=== PATIENT | male | born 1975 | race Caucasian/White ===

== ENCOUNTER → 2018-12-26 15:02 | Outpatient (CLI) | payer MEDICAID, SELFPAY ==
[2018-12-26 16:15] VITALS: PULSE 78; PULSE 82
== END ==
PROVIDERS: PCP Emergency Medicine; Visit Provider Nurse Practitioner Family
DX: R06.02 Shortness of breath (principal); J45.909 Unspecified asthma, uncomplicated
CPT/HCPCS: 94060; 94640; 94726; 94729

== ENCOUNTER → 2019-07-21 13:20 | Outpatient (CLI) | payer OTHER, SELFPAY ==
[2019-07-21 14:01] LABS: Basophils % 0.3 % (0.1-2.0); Eosinophils # 0.2 K/mm3 (0.0-0.4); Eosinophils % 1.4 % (0.1-12.0); Hematocrit 41.9 % (42.0-52.0); Hemoglobin 13.9 g/dL (14.1-18.0); Lymphocytes # 2.7 K/mm3 (0.7-4.5); Lymphocytes % 21.6 % (10-50); Mean Corpuscular HGB Conc 33.2 g/dL (31.8-35.4); Mean Corpuscular Hemoglobin 29.6 pg (27.0-31.2); Mean Corpuscular Volume 89.3 fl (80-94); Mean Platelet Volume 8.3 fl (7.4-10.4); Monocytes # 0.6 K/mm3 (0.1-1.0); Neutrophils # 8.8 K/mm3 (1.8-7.8); Neutrophils % 71.6 % (37.0-80.0); Platelet Count 379 K/mm3 (142-424); Red Cell Distribution Width 12.8 % (11.5-17.5); White Blood Count 12.3 K/mm3 (4.8-10.8)
[2019-07-21 14:23] LABS: Alanine Aminotransferase 15 U/L (12-78); Albumin Level 3.9 gm/dL (3.4-5.0); Alkaline Phosphatase 101 U/L (46-116); Aspartate Amino Transferase 9 U/L (15-37); Bilirubin,Direct 0.1 mg/dL (0.0-0.2); Bilirubin,Indirect 0.2 mg/dL (0.0-0.9); Bilirubin,Total 0.3 mg/dL (0.2-1.0); Blood Urea Nitrogen 9 mg/dL (7-18); Calcium 8.9 mg/dL (8.5-10.1); Carbon Dioxide 24 mmol/L (21.0-32.0); Chloride 103 mmol/L (98-107); Chol/HDL Ratio 4.6 (1-3.5); Cholesterol 228 mg/dL (140-200); Creatinine,Serum 0.76 mg/dL (0.70-1.30); Estimated Glomerular Filt Rate 111 ml/min (>60); GFR (African American) 135 ML/MIN (>60); Globulin 4.1 gm/dl (1.3-3.2); Glucose 122 mg/dL (74-106); HDL Cholesterol 50 mg/dL (27-67); LDL Cholesterol 159 mg/dL (0-130); Sodium 139 mmol/L (136-145); T4 (Thyroxine) 9.3 ug/dl (4.7-13.3); Triglycerides 97 mg/dL (30-200); VLDL Cholesterol 19 mg/dL (0-40)
[2019-07-22 11:13] LABS: Hep A Ab, IgM Negative (Negative); Hepatitis B Core Antibody IgM Negative (Negative); Hepatitis B Surface Antigen Negative (Negative)
[2019-07-22 15:31] LABS: Hepatitis C Antibody >11.0 s/co ratio (0.0-0.9)
== END ==
PROVIDERS: Nurse Practitioner Family; Visit Provider Emergency Medicine
DX: I10 Essential (primary) hypertension (principal); M79.89 Other specified soft tissue disorders; R20.0 Anesthesia of skin; Z87.898 Personal history of other specified conditions
CPT/HCPCS: 80053; 80061; 80074; 80076; 84436; 84443; 85025; 87522

== ENCOUNTER → 2019-09-22 08:03 | Outpatient (CLI) | payer OTHER, SELFPAY ==
[2019-09-22 08:43] LABS: Basophils # 0.1 K/mm3 (0-0.2); Basophils % 0.7 % (0.1-2.0); Eosinophils # 0.3 K/mm3 (0.0-0.4); Eosinophils % 4.4 % (0.1-12.0); Hematocrit 39.3 % (42.0-52.0); Hemoglobin 12.9 g/dL (14.1-18.0); Lymphocytes # 2.5 K/mm3 (0.7-4.5); Lymphocytes % 37.1 % (10-50); Mean Corpuscular HGB Conc 32.9 g/dL (31.8-35.4); Mean Corpuscular Hemoglobin 29.6 pg (27.0-31.2); Mean Platelet Volume 7.4 fl (7.4-10.4); Monocytes # 0.4 K/mm3 (0.1-1.0); Monocytes % 5.8 % (1.7-9.3); Neutrophils # 3.5 K/mm3 (1.8-7.8); Platelet Count 309 K/mm3 (142-424); Red Blood Count 4.36 M/mm3 (4.60-6.20); Red Cell Distribution Width 12.9 % (11.5-17.5); White Blood Count 6.8 K/mm3 (4.8-10.8)
== END ==
PROVIDERS: Visit Provider Surgery
DX: R10.31 Right lower quadrant pain (principal)
CPT/HCPCS: 36415; 85025

== ENCOUNTER → 2019-09-23 09:27 | Outpatient (CLI) | payer OTHER, SELFPAY ==
[2019-09-23 09:42] LABS: Basophils % 0.6 % (0.1-2.0); Eosinophils # 0.3 K/mm3 (0.0-0.4); Eosinophils % 3.9 % (0.1-12.0); Hemoglobin 13.2 g/dL (14.1-18.0); Lymphocytes # 2.1 K/mm3 (0.7-4.5); Lymphocytes % 29.6 % (10-50); Mean Corpuscular HGB Conc 33.9 g/dL (31.8-35.4); Mean Corpuscular Hemoglobin 30.2 pg (27.0-31.2); Mean Corpuscular Volume 89.1 fl (80-94); Mean Platelet Volume 7.3 fl (7.4-10.4); Monocytes # 0.4 K/mm3 (0.1-1.0); Monocytes % 5.8 % (1.7-9.3); Neutrophils # 4.3 K/mm3 (1.8-7.8); Neutrophils % 60.1 % (37.0-80.0); Platelet Count 283 K/mm3 (142-424); Red Blood Count 4.37 M/mm3 (4.60-6.20); White Blood Count 7.1 K/mm3 (4.8-10.8)
== END ==
PROVIDERS: Visit Provider Surgery
DX: R10.9 Unspecified abdominal pain (principal)
CPT/HCPCS: 36415; 85025

== ENCOUNTER → 2020-03-23 10:02 | Outpatient (CLI) | payer OTHER, SELFPAY ==
[2020-03-23 10:49] LABS: Basophils % 0.6 % (0.1-2.0); Eosinophils # 0.4 K/mm3 (0.0-0.4); Eosinophils % 5.2 % (0.1-12.0); Hematocrit 39.9 % (42.0-52.0); Hemoglobin 13.7 g/dL (14.1-18.0); Lymphocytes # 2.2 K/mm3 (0.7-4.5); Lymphocytes % 31.2 % (10-50); Mean Corpuscular HGB Conc 34.3 g/dL (31.8-35.4); Mean Corpuscular Hemoglobin 30.9 pg (27.0-31.2); Mean Platelet Volume 7.3 fl (7.4-10.4); Monocytes # 0.4 K/mm3 (0.1-1.0); Monocytes % 6.2 % (1.7-9.3); Neutrophils % 56.8 % (37.0-80.0); Platelet Count 294 K/mm3 (142-424); Red Blood Count 4.43 M/mm3 (4.60-6.20); White Blood Count 7.1 K/mm3 (4.8-10.8)
[2020-03-23 11:22] LABS: Chloride 104 mmol/L (98-107); Potassium 4.7 mmoL/L (3.5-5.1); Sodium 141 mmol/L (136-145)
[2020-03-23 11:25] LABS: Alanine Aminotransferase 13 U/L (12-78); Albumin Level 4.3 g/dl (3.5-5.0); Albumin/Globulin Ratio 1.3 (1.1-1.8); Alkaline Phosphatase 82 U/L (38-126); Anion Gap 11.7 mEq/L (5-15); Aspartate Amino Transferase 24 U/L (17-59); Bilirubin,Total 0.5 mg/dl (0.2-1.3); Blood Urea Nitrogen 9 mg/dl (9-20); Carbon Dioxide 30 mmol/L (22.0-30.0); Estimated Glomerular Filt Rate 122 ml/min (>60); GFR (African American) 148 ML/MIN (>60); Globulin 3.2 g/dL (1.3-3.2); Total Protein,Serum 7.5 g/dl (6.3-8.2)
[2020-03-23 11:26] LABS: Calcium 9.7 mg/dl (8.4-10.2); Glucose 101 mg/dl (74-100)
[2020-03-23 11:37] LABS: INR 1.01 (0.9-1.1); Prothrombin Time 10.4 seconds (9.4-11.8)
[2020-03-24 11:21] LABS: HIV Screen 4th Generation wRfx Non Reactive (Non Reactive)
[2020-03-25 04:04] LABS: ALT (SGPT) P5P 14 IU/L (0-55); Alpha 2-Macroglobulins, Qn 156 mg/dL (110-276); Apolipoprotein A-1 113 mg/dL (101-178); Bilirubin, Total 0.3 mg/dL (0.0-1.2); Fibrosis Score 0.11 (0.00-0.21); GGT 17 IU/L (0-65); Haptoglobin 133 mg/dL (23-355); Necroinflammat Activity Grade A0-No activity (.); Necroinflammat Activity Score 0.03 (0.00-0.17)
[2020-03-26 13:06] LABS: Hepatitis B Surface Antigen Negative (Negative)
[2020-04-15 09:34] LABS: Hep A Ab, Total Positive
[2020-04-15 09:35] LABS: Hep B Core Ab, Total Positive
[2020-04-15 09:38] LABS: Hepatitis B Surf Ab Quant >1000.0
== END ==
PROVIDERS: Visit Provider Nurse Practitioner
DX: B18.2 Chronic viral hepatitis C (principal)
CPT/HCPCS: 36415; 80053; 81596; 85025; 85610; 86703; 86704; 86706; 86708; 87340; 87350; 87522; G0432

== ENCOUNTER 2020-06-13 21:57 | Emergency (ER) | payer OTHER, SELFPAY ==
--- NOTE | 2020-06-13 21:41 | ECG_ITS ---
APPROVED REPORT Exam: Resting ECG HR:65 bpm ECG Measurements Heart Rate [address] 190 P 58 QRSd 80 QRS 66 QT 408 T 67 QTc 424 Conclusion Normal sinus rhythm Normal ECG Electronically signed by : Jace Leon, 06/14/2020 14:46:13
[2020-06-13 21:58] VITALS: BP 176/111; PULSE 64; RESP 16; TEMP 37; O2SAT 99; BMI 27.1
--- NOTE | 2020-06-13 22:05 | XR_ITS ---
PROCEDURE: XR CHEST 2V CLINICAL HISTORY: chest pain Shortness of air COMPARISON: CR CXR CHEST(2 VIEWS-NOT PORTABLE) from 08/12/2015 CR CXR CHEST(2 VIEWS-NOT PORTABLE) from 03/13/2016 CR XR CHEST PORTABLE from 09/21/2019 FINDINGS: The cardiomediastinal silhouette and pulmonary vascularity are within normal limits. The lungs are clear without infiltrates, suspicious nodules, or pleural effusions. No acute bony abnormalities. IMPRESSION: No acute findings. Dictated by: Samy Concepcion MD 06/14/2020 05:45 Samy Concepcion MD in [place] 06/14/2020 05:45
--- NOTE | 2020-06-13 22:16 | HMH.EDCP ---
ED Disposition Clinical Impression: Atypical chest pain COPD (chronic obstructive pulmonary disease) Qualifiers: COPD type: COPD with acute exacerbation Qualified Code(s): J44.1 - Chronic obstructive pulmonary disease with (acute) exacerbation Disposition: Home, Self-Care Condition on Discharge: Good Instructions: DI for Atypical Chest Pain Additional Instructions: please call pcp for follow up Prescriptions: levoFLOXacin [Levaquin 500mg tab] 500 mg PO DAILY #7 tab Transmission Status: Pending to [facility] predniSONE [Prednisone 20mg Tab] 20 mg PO BID #10 tab Transmission Status: Pending to [facility] Referrals: Gus Potts MD [Primary Care Provider] - - Critical Care Critical Care Time: No Attestation: On 06/13/20, the high probability of a clinically significant, sudden or life threatening deterioration of the following system(s) required my full and direct attention, intervention and personal management. The time I documented below is in addition to time spent performing reported procedures but includes the following listed in this critical care notation. Medical Decision Making - Medical Records Medical records reviewed: Yes: I reviewed the patient's medical records. - Rios Inquiry Pt receiving controlled substance: No Vital Signs: 06/13/20 21:58 06/13/20 22:30 06/13/20 23:00 Temperature 98.6 F Temperature Source Oral Pulse Rate [Right] 64 61 57 L Respiratory Rate 16 17 17 Blood Pressure [Right Arm] 176/111 H 138/85 142/80 H Blood Pressure Mean [Right Arm] 132 102 100 Blood Pressure Source [Right Arm] Automatic Cuff Automatic Cuff Automatic Cuff Blood Pressure Position [Right Arm] Sitting Supine Supine 02 Sat by Pulse Oximetry 99 98 99 Oxygen Delivery Method Room Air Room Air Room Air - Lab Data Lab results reviewed: Yes: I reviewed the patient's lab results. Lab Results 06/13/20 22:00: WBC 12.0 H, RBC 4.38 L, Hgb 13.5 L, Hct 39.0 L, MCV 89.1, MCH 30.8, MCHC 34.6, RDW 13.4, Plt Count 331, MPV 7.4, Neut % (Auto) 58.6, Lymph % (Auto) 32.5, [place] % (Auto) 5.0, Eos % (Auto) 3.2, Baso % (Auto) 0.7, Neut # (Auto) 7.1, Lymph # (Auto) 3.9, [place] # (Auto) 0.6, Eos # (Auto) 0.4, Baso # (Auto) 0.1 06/13/20 22:00: Sodium 138, Potassium 4.0, Chloride 103, Carbon Dioxide 27, Anion Gap 12.0, BUN 9, Creatinine 0.80, Estimated Creat Clear 150, Estimated GFR 105, Est GFR ( Amer) 126, Glucose 93, Calcium 9.6, Total Bilirubin 0.4, Direct Bilirubin 0.0, Conjugated Bilirubin 0.0, Indirect Bilirubin 0.4, Unconjugated Bilirubin 0.3, AST 23, ALT 12, Alkaline Phosphatase 87, Troponin I < 0.01, Total Protein 8.0, Albumin 4.5 06/13/20 22:00: SARS-CoV-2 IgG Ab (Rapid) Negative, SARS-CoV-2 IgM Ab (Rapid) Negative Result diagrams: 06/13/20 22:00 06/13/20 22:00 Orders (Tests/Meds): ED MEDICATIONS Generic Name Dose Route Start Last Admin Trade Name Freq PRN Reason Stop Dose Admin Sodium Chloride 1,000 mls @ 999 mls/hr 06/13/20 22:15 06/13/20 22:22 Sod Chlor 0.9% 1000ml Bag IV 06/13/20 23:15 999 mls/hr .Q1H1M ARLEN Administration Discontinued Medications Generic Name Dose Route Start Last Admin Trade Name Freq PRN Reason Stop Dose Admin Aspirin 324 mg 06/13/20 22:05 06/13/20 22:05 Aspirin 81mg Chewable Tablet PO 06/13/20 22:06 324 mg ONCE ONE Administration Methylprednisolone Sodium Succinate 125 mg 06/13/20 22:44 06/13/20 22:45 Methylprednisolone Sod Succ 125mg Vial IV 06/13/20 22:45 125 mg ONCE ONE Administration Nitroglycerin 0.4 mg 06/13/20 22:05 06/13/20 22:05 Nitroglycerin 0.4mg Sl Tablet SL 06/13/20 22:06 1 tab ONCE ONE Administration ORDERS Category Date Time Status XR chest 2V Stat Exams 06/13/20 22:05 Taken Troponin I Q3H Lab 06/14/20 01:15 Ordered Troponin I Q3H Lab 06/14/20 04:15 Ordered - Radiology Data #1 Image(s): Chest Image Reviewed: Yes I reviewed the patient's radiology image P
[2020-06-13 22:17] LABS: Basophils # 0.1 K/mm3 (0-0.2); Basophils % 0.7 % (0.1-2.0); Eosinophils # 0.4 K/mm3 (0.0-0.4); Eosinophils % 3.2 % (0.1-12.0); Hemoglobin 13.5 g/dL (14.1-18.0); Lymphocytes # 3.9 K/mm3 (0.7-4.5); Lymphocytes % 32.5 % (10-50); Mean Corpuscular HGB Conc 34.6 g/dL (31.8-35.4); Mean Corpuscular Hemoglobin 30.8 pg (27.0-31.2); Mean Corpuscular Volume 89.1 fl (80-94); Mean Platelet Volume 7.4 fl (7.4-10.4); Monocytes # 0.6 K/mm3 (0.1-1.0); Neutrophils # 7.1 K/mm3 (1.8-7.8); Neutrophils % 58.6 % (37.0-80.0); Platelet Count 331 K/mm3 (142-424); Red Blood Count 4.38 M/mm3 (4.60-6.20); Red Cell Distribution Width 13.4 % (11.5-17.5)
[2020-06-13 22:22] LABS: Chloride 103 mmol/L (98-107); Sodium 138 mmol/L (136-145)
[2020-06-13 22:24] LABS: Blood Urea Nitrogen 9 mg/dl (9-20); Creatinine Clearance Estimated 150 mL/min (50-200); Estimated Glomerular Filt Rate 105 ml/min (>60); GFR (African American) 126 ML/MIN (>60)
[2020-06-13 22:25] LABS: Alanine Aminotransferase 12 U/L (12-78); Albumin Level 4.5 g/dl (3.5-5.0); Alkaline Phosphatase 87 U/L (38-126); Aspartate Amino Transferase 23 U/L (17-59); Bilirubin,Indirect 0.4 mg/dL (0.0-0.9); Bilirubin,Total 0.4 mg/dl (0.2-1.3); Bilirubin,Unconjugated 0.3 mg/dL (0.0-1.1); Calcium 9.6 mg/dl (8.4-10.2); Carbon Dioxide 27 mmol/L (22.0-30.0); Glucose 93 mg/dl (74-100)
[2020-06-13 22:30] VITALS: BP 138/85; PULSE 61; RESP 17; O2SAT 98
[2020-06-13 22:38] LABS: Troponin I < 0.01 ng/ml (0.00-0.034)
[2020-06-13 23:00] VITALS: BP 142/80; PULSE 57; RESP 17; O2SAT 99
[2020-06-13 23:10] LABS: Coronavirus 19 IgG Antibody Negative (Negative); Coronavirus 19 IgM Antibody Negative (Negative)
[2020-06-13 23:47] VITALS: BP 138/90; PULSE 60; RESP 16; TEMP 37; O2SAT 98
== END 2020-06-13 23:49 | disposition home or self-care (01) ==
PROVIDERS: Emergency Provider Emergency Medicine; PCP Emergency Medicine
DX: R07.89 Other chest pain (principal); J44.1 Chronic obstructive pulmonary disease with (acute) exacerbation; Z01.84 Encounter for antibody response examination; I10 Essential (primary) hypertension; F17.210 Nicotine dependence, cigarettes, uncomplicated; Z88.0 Allergy status to penicillin; Z88.1 Allergy status to other antibiotic agents; Z79.899 Other long term (current) drug therapy
CPT/HCPCS: 71046; 80048; 80076; 84484; 85025; 86328; 93005; 96365; 96375; 99283

== ENCOUNTER 2020-06-29 17:10 | Emergency (ER) | payer OTHER, SELFPAY ==
[2020-06-29 17:32] VITALS: BP 159/89; PULSE 73; RESP 14; TEMP 37.2; O2SAT 97; BMI 28.5
--- NOTE | 2020-06-29 17:49 | HMH.EDUTC ---
[facility] [place] Clinical Impression: Exposure to COVID-19 virus, Encounter for screening laboratory testing for COVID-19 virus Disposition: Home, Self-Care Condition on Discharge: Good Instructions: Preventing the Spread of Coronavirus Discharge Instructions Additional Instructions: *Monitor Temp, Over the counter Motrin or Tylenol as directed/as needed Tylenol every 4 hours and Motrin every 6 hours (as long as your family doctor has told you that you can take it) for fever or pain. and straight to ER if unable to lower temp less than 101.0 after medication given *Warm salt water gargles may help to soothe the throat *Throat Lozenges *Warm fluids like tea with honey may help to soothe the throat *Sleep elevated *Humidifier/Vaporizer Follow up IMMEDIATELY for new or worsening symptoms or no Noticeable improvement over the next 48-72 hours. 911 for difficulty breathing or swallowing You was tested for today for COVID19 your test result should be back in the next 24-48 hours, you may call to the [facility] later today or tomorrow to see if your test results are back and the result [phone] [facility] hours are 9am-9pm You was given a handout with instructions for Self Quarantine and Self isolation for while you wait on test results and what to do if they are positive If you are positive the Health Dept will be contacting you also Referrals: Gus Potts MD [Primary Care Provider] - As needed Forms: Work/School Release Time of Disposition: 17:57 Medical Decision Making - Rios Inquiry Pt receiving controlled substance: No Rios was queried for this patient: No Vital Signs: 06/29/20 17:32 Temperature 98.9 F Temperature Source Oral Pulse Rate [Radial] 73 Respiratory Rate 14 Blood Pressure [Right Arm] 159/89 H Blood Pressure Mean [Right Arm] 112 Blood Pressure Source [Right Arm] Automatic Cuff Blood Pressure Position [Right Arm] Sitting 02 Sat by Pulse Oximetry 97 Oxygen Delivery Method Room Air Orders (Tests/Meds): ORDERS Category Date Time Status Covid-19 Nasal PCR Sendout Alen Stat Lab 06/29/20 17:25 Received [facility] [place] - General Stated complaint: COVID TEST, no symptoms Time Seen by Provider: 06/29/20 17:49 Mode of Arrival: Ambulatory Source of Information: Patient Limitations: No Limitations Description of Symptoms (Recalled from Triage Doc. by RN): patient upset that he can't get into his doctor's office for a rapid covid test related to being exposed at work. HEENT Symptoms (Recalled from RN notes): No Resp Symptoms (Recalled from RN notes): No Skin Symptoms (Recalled from RN notes): No MS Symptoms (Recalled from RN notes): No Functional Status (Recalled from RN notes): wnl - History of Present Illness Provider Complaint: Patient states that he was around someone at work that several family members that lives in the house with them tested positive for COVID and now his coworker is having symptoms so they recommended that they come in and get checked Denies any symptoms - Related Data Home Medications Medication Instructions Recorded Confirmed buprenorphine 8 mg-naloxone 2 mg 1 film BUCCAL DAILY 07/21/19 06/13/20 sublingual film Fluticasone/Vilanterol [Breo 1 inh INHALATION DAILY 06/13/20 06/13/20 Ellipta] Umeclidinium [place] [Incruse 1 inh INHALATION DAILY 06/13/20 06/13/20 Ellipta] Previous Rx's Medication Instructions Recorded albuterol sulfate 90 mcg/actuation 2 inh INHALATION Q4-6H PRN #1 each 07/21/19 breath activated powder inhaler levoFLOXacin [Levaquin 500mg 500 mg PO DAILY #7 tab 06/13/20 tab] predniSONE [Prednisone 20mg 20 mg PO BID #10 tab 06/13/20 Tab] Allergies Allergy/AdvReac Type Severity Reaction Status Date / Time amoxicillin [AMOXICILLIN] Allergy Unknown Verified 09/23/19 09:51 azithromycin [AZITHROMYCIN] Allergy Unknown Verified 09/23/19 09:51 diphenhydramine Allergy Unknown Verified 09/23/19 09:51 [From BENADRYL] Penic
[2020-06-29 18:03] VITALS: BP 159/89; PULSE 73; RESP 14; TEMP 37.2; O2SAT 97
[2020-07-01 10:53] LABS: Covid-19 Nasal PCR Sendout Lex Not Detected
== END 2020-06-29 18:03 | disposition home or self-care (01) ==
PROVIDERS: Emergency Provider Nurse Practitioner; PCP Emergency Medicine
DX: Z20.828 Contact with and (suspected) exposure to other viral communicable diseases (principal); I10 Essential (primary) hypertension; Z88.0 Allergy status to penicillin; F17.210 Nicotine dependence, cigarettes, uncomplicated; Z90.49 Acquired absence of other specified parts of digestive tract
CPT/HCPCS: 99201; U0004

== ENCOUNTER 2020-09-13 10:03 | Emergency (ER) | payer OTHER, SELFPAY ==
[2020-09-13 10:04] VITALS: BP 162/86; PULSE 66; RESP 18; TEMP 36.9; O2SAT 98; BMI 28.5
--- NOTE | 2020-09-13 10:06 | HMH.EDABDPAI ---
ED Disposition Clinical Impression: Cystitis Abdominal pain Qualifiers: Abdominal location: right lower quadrant Qualified Code(s): R10.31 - Right lower quadrant pain Disposition: Home, Self-Care Condition on Discharge: Good Instructions: DI for Urinary Tract Infection (UTI) Prescriptions: Doxycycline Hyclate [Doxycycline 100mg Capsule] 100 mg PO BID 7 Days #14 cap [facility]: [facility] Referrals: Gus Potts MD [Primary Care Provider] - - Critical Care Critical Care Time: No Attestation: On , the high probability of a clinically significant, sudden or life threatening deterioration of the following system(s) required my full and direct attention, intervention and personal management. The time I documented below is in addition to time spent performing reported procedures but includes the following listed in this critical care notation. Medical Decision Making - Medical Records Medical records reviewed: Yes: I reviewed the patient's medical records. - Rios Inquiry Pt receiving controlled substance: No Vital Signs: 09/13/20 10:04 09/13/20 11:04 Temperature 98.4 F Temperature Source Oral Pulse Rate [Left Radial] 66 64 Respiratory Rate 18 Blood Pressure [Right Arm] 162/86 H 153/93 H Blood Pressure Mean [Right Arm] 111 113 Blood Pressure Source [Right Arm] Automatic Cuff Automatic Cuff Blood Pressure Position [Right Arm] Sitting Sitting 02 Sat by Pulse Oximetry 98 96 Oxygen Delivery Method Room Air Room Air - Lab Data Lab results reviewed: Yes: I reviewed the patient's lab results. Lab Results 09/13/20 10:20: WBC 7.2, RBC 4.59 L, Hgb 13.9 L, Hct 41.7 L, MCV 90.7, MCH 30.2, MCHC 33.3, RDW 13.3, Plt Count 277, MPV 7.2 L, Neut % (Auto) 58.6, Lymph % (Auto) 31.4, [place] % (Auto) 5.2, Eos % (Auto) 3.9, Baso % (Auto) 0.9, Neut # (Auto) 4.2, Lymph # (Auto) 2.3, [place] # (Auto) 0.4, Eos # (Auto) 0.3, Baso # (Auto) 0.1 09/13/20 10:20: Sodium 139, Potassium 4.2, Chloride 105, Carbon Dioxide 29, Anion Gap 9.2, BUN 11, Creatinine 0.90, Estimated Creat Clear 140, Estimated GFR 91, Est GFR ( Amer) 110, Glucose 113 H, Calcium 9.7 09/13/20 10:23: Urine Color Yellow, Urine Appearance Clear, Urine pH 7.0, Ur Specific [place] 1.020, Urine Protein Negative, Urine Glucose (UA) Negative, Urine Ketones Negative, Urine Blood Negative, Urine Nitrate Negative, Urine Bilirubin Negative, Urine Urobilinogen 0.2, Ur Leukocyte Esterase Negative, Urine WBC 3-5, Ur Squamous Epith Cells Occasional Result diagrams: 09/13/20 10:20 09/13/20 10:20 Orders (Tests/Meds): ORDERS Category Date Time Status CT abdomen pelvis wo con Stat Cat Scan 09/13/20 10:11 Taken - CT Data CT Scan: Abdomen, Pelvis Time Received: 11:[address] Reviewed: Yes: I have reviewed the patient's CT results Findings Narrative: CT shows bladder thickening which may represent acute or chronic cystitis, also possibility would be chronic bladder outlet obstruction and chronic bladder stasis Medical Decision Narrative: Patient with CT scan that shows no signs of kidney stones, but does suggest acute versus chronic cystitis, or possibly chronic bladder outlet obstruction. Patient is covered for STDs here, though he seems insistent that this is not a possibility. He does state that he urinates frequently and this has been ongoing for quite some time. No signs of appendicitis, sepsis. He is given Rocephin IM and covered with doxycycline outpatient as he is allergic to azithromycin. First dose of doxycycline given here. We discussed the possibility of primary UTI, STD, prostate problems and I advised to follow-up with urology for further evaluation and management. Abdominal Pain HPI - General Stated Complaint: abdominal pain Time Seen by Provider: 09/13/20 10:06 Mode of Arrival: Ambulatory Source of Information: Patient Limitations: No Limitations - History of Present Illness HPI narrative: This is a 44-y
--- NOTE | 2020-09-13 10:11 | CT_ITS ---
PROCEDURE: CT ABDOMEN PELVIS WO CON CLINICAL INDICATION: right abd pain, painful urination COMPARISON: CT CT ABDOMEN PELVIS W CON from 09/21/2019 TECHNIQUE: Axial images obtained with sagittal and coronal reformats. All CT scans at the facility use one or more dose reduction, viz: automated exposure control, ma/kV adjustment per patient size (including targeted exams where dose is matched to indication, i.e. head), or iterative reconstruction technique. FINDINGS: LOWER THORAX: On the most superior image of the chest there is a 5 mm nodular opacity in lingula. This may only be due to a branching vessel on end or pulmonary nodule. ABDOMEN & PELVIS: There are multiple small hypodensities of the liver and may be due to cysts having a similar appearance on 09/21/2019. The spleen is mildly enlarged 14 cm. The adrenal glands and pancreas and kidneys have an unremarkable appearance. No renal or ureteral calculi. No hydronephrosis. There are few scattered small retroperitoneal and periportal and peripancreatic lymph nodes. No intestinal obstruction or free air. No evidence of appendicitis. There is a small umbilical hernia which contains fat. No evidence of diverticulitis. There is mild thickening of the urinary bladder wall. A small calcific density is present within the urachal remnant nonspecific. There are few small sclerotic foci of the femora consistent with small bone islands. IMPRESSION: 1. There is mild urinary bladder wall thickening which may be seen with incomplete distension, chronic outflow obstruction, or cystitis. 2. Scattered mildly prominent lymph nodes in the retroperitoneum and periportal and peripancreatic region overall not significantly changed. Dictated by: aSmy Concepcion MD 09/13/2020 11:45 Samy Concepcion MD in [place] 09/13/2020 11:45
[2020-09-13 10:29] LABS: Microscopic, Urine URINE MICROSCOPIC (MICROSCOPIC)
[2020-09-13 10:34] LABS: Appearance,Urine CLEAR (Clear); Bilirubin,Urine Negative (Negative); Blood, Urine Negative (Negative); Color,Urine YELLOW (Yellow); Glucose,Urine (UA) Negative (Negative); Ketones,Urine Negative (Negative); Leukocyte Esterase,Urine Negative (Negative); Nitrate,Urine Negative (Negative); Protein,Urine Negative (Negative); Urobilinogen,Urine 0.2 EU/dl (0.2)
[2020-09-13 10:41] LABS: Chloride 105 mmol/L (98-107); Potassium 4.2 mmoL/L (3.5-5.1); Sodium 139 mmol/L (136-145)
[2020-09-13 10:43] LABS: Blood Urea Nitrogen 11 mg/dl (9-20); Creatinine Clearance Estimated 140 mL/min (50-200); Estimated Glomerular Filt Rate 91 ml/min (>60); GFR (African American) 110 ML/MIN (>60)
[2020-09-13 10:44] LABS: Anion Gap 9.2 mEq/L (5-15); Calcium 9.7 mg/dl (8.4-10.2); Carbon Dioxide 29 mmol/L (22.0-30.0); Glucose 113 mg/dl (74-100)
[2020-09-13 10:50] LABS: Squamous Epithelial Cell,Urine Occasional #/hpf (0-5)
[2020-09-13 10:55] LABS: Basophils # 0.1 K/mm3 (0-0.2); Basophils % 0.9 % (0.1-2.0); Eosinophils # 0.3 K/mm3 (0.0-0.4); Eosinophils % 3.9 % (0.1-12.0); Hematocrit 41.7 % (42.0-52.0); Hemoglobin 13.9 g/dL (14.1-18.0); Lymphocytes # 2.3 K/mm3 (0.7-4.5); Lymphocytes % 31.4 % (10-50); Mean Corpuscular HGB Conc 33.3 g/dL (31.8-35.4); Mean Corpuscular Hemoglobin 30.2 pg (27.0-31.2); Mean Corpuscular Volume 90.7 fl (80-94); Mean Platelet Volume 7.2 fl (7.4-10.4); Monocytes # 0.4 K/mm3 (0.1-1.0); Monocytes % 5.2 % (1.7-9.3); Neutrophils # 4.2 K/mm3 (1.8-7.8); Neutrophils % 58.6 % (37.0-80.0); Platelet Count 277 K/mm3 (142-424); Red Blood Count 4.59 M/mm3 (4.60-6.20); Red Cell Distribution Width 13.3 % (11.5-17.5); White Blood Count 7.2 K/mm3 (4.8-10.8)
[2020-09-13 11:04] VITALS: BP 153/93; PULSE 64; O2SAT 96
[2020-09-13 12:30] VITALS: BP 153/93; PULSE 64; RESP 18; TEMP 36.9; O2SAT 96
[2020-09-15 10:17] LABS: Neisseria gonorrhoeae, NAA Negative (Negative)
== END 2020-09-13 12:35 | disposition home or self-care (01) ==
PROVIDERS: Emergency Provider Emergency Medicine; PCP Emergency Medicine
DX: N32.89 Other specified disorders of bladder (principal); R10.31 Right lower quadrant pain; F11.90 Opioid use, unspecified, uncomplicated; I82.409 Acute embolism and thrombosis of unspecified deep veins of unspecified lower extremity; I10 Essential (primary) hypertension; Z72.0 Tobacco use; Z82.3 Family history of stroke; Z80.9 Family history of malignant neoplasm, unspecified; Z83.3 Family history of diabetes mellitus; Z84.89 Family history of other specified conditions
CPT/HCPCS: 74176; 80048; 81001; 85025; 87491; 87591; 99283

== ENCOUNTER 2020-10-31 12:02 | Emergency (ER) | payer OTHER, SELFPAY ==
[2020-10-31 12:40] VITALS: BP 147/84; PULSE 53; RESP 14; TEMP 36.8; O2SAT 96; BMI 29.8
--- NOTE | 2020-10-31 13:10 | HMH.EDUTC ---
[facility] [place] Disposition Clinical Impression: Bronchitis, Viral syndrome, Exposure to COVID-19 virus Disposition: Home, Self-Care Condition on Discharge: Good Instructions: DI for Acute Bronchitis, DI for COVID-19 (Suspected or Confirmed ), Preventing the Spread of Coronavirus Discharge Instructions Additional Instructions: Drink plenty of fluids. Take tylenol for pain or fever. Return if you begin to have difficulty breathing. Follow up with your regular doctor. GO TO THE ER FOR ANY WORSENING SYMPTOMS Prescriptions: Ondansetron [Zofran 4mg ODT] 4 mg PO Q8HP PRN #12 tab.rapdis PRN Reason: Nausea Transmission Status: Received by [facility] Doxycycline Hyclate [Doxycycline 100mg Capsule] 100 mg PO Q12 10 Days #20 cap Transmission Status: Received by [facility] predniSONE [Prednisone 20mg Tab] 20 mg PO BID 4 Days #8 tab Transmission Status: Received by [facility] Referrals: Gus Potts MD [Primary Care Provider] - Forms: Work/School Release Time of Disposition: 13:25 Medical Decision Making - Medical Records Medical records reviewed: No: I reviewed the patient's medical records. - Rios Inquiry Pt receiving controlled substance: No Vital Signs: 10/31/20 12:40 10/31/20 13:29 Temperature 98.2 F 98.2 F Temperature Source Oral Pulse Rate 53 L Pulse Rate [Right Brachial] 53 L Respiratory Rate 14 14 Blood Pressure 147/84 H Blood Pressure [Right Arm] 147/84 H Blood Pressure Mean [Right Arm] 105 Blood Pressure Source [Right Arm] Automatic Cuff Blood Pressure Position [Right Arm] Sitting 02 Sat by Pulse Oximetry 96 Oxygen Delivery Method Room Air - Lab Data Lab Results 10/31/20 13:36: Influenza Type A Ag Negative, Influenza Type B Ag Negative 10/31/20 13:36: Strep Scn Rapid Clinic Negative Orders (Tests/Meds): ORDERS Category Date Time Status Strep Screen Confirmation Stat Micro 10/31/20 13:36 Received [facility] [place] HPI - General Stated complaint: vomiting, soa, headache Time Seen by Provider: 10/31/20 13:10 Mode of Arrival: Ambulatory Source of Information: Patient Limitations: No Limitations Description of Symptoms (Recalled from Triage Doc. by RN): PATIENT C/O SOA, VOMITING, HEADACHE THAT STARTED THIS MORNING HEENT Symptoms (Recalled from RN notes): No Resp Symptoms (Recalled from RN notes): Yes Skin Symptoms (Recalled from RN notes): No MS Symptoms (Recalled from RN notes): No Functional Status (Recalled from RN notes): WNL - History of Present Illness Provider Complaint: He states that he has had nausea, cough, chest congestion, chills and body aches since early this morning. He denies any chest pain or shortness of breath. - Related Data Home Medications Medication Instructions Recorded Confirmed buprenorphine 8 mg-naloxone 2 mg 1 film BUCCAL DAILY 07/21/19 10/31/20 sublingual film Previous Rx's Medication Instructions Recorded albuterol sulfate 90 mcg/actuation 2 inh INHALATION Q4-6H PRN #1 each 07/21/19 breath activated powder inhaler Doxycycline Hyclate [Doxycycline 100 mg PO Q12 10 Days #20 cap 10/31/20 100mg Capsule] Ondansetron [Zofran 4mg ODT] 4 mg PO Q8HP PRN #12 tab.rapdis 10/31/20 predniSONE [Prednisone 20mg 20 mg PO BID 4 Days #8 tab 10/31/20 Tab] Allergies Allergy/AdvReac Type Severity Reaction Status Date / Time amoxicillin [AMOXICILLIN] Allergy Unknown Verified 09/23/19 09:51 azithromycin [AZITHROMYCIN] Allergy Unknown Verified 09/23/19 09:51 diphenhydramine Allergy Unknown Verified 09/23/19 09:51 [From BENADRYL] Penicillins [PENICILLINS] Allergy Unknown Verified 09/23/19 09:51 - Worker's Comp Is this a Worker's Comp case?: No [facility] History - Hepatitis A Screen Drug use history?: No High risk sexual behaviors?: No History of sexually transmitted infection?: No Currently employed?: No Childcare worker?: No Do you have indoor plumbing?: Yes Do yo
[2020-10-31 13:29] VITALS: BP 147/84; PULSE 53; RESP 14; TEMP 36.8; O2SAT 96
[2020-10-31 13:38] LABS: UTC Strep Screen (Rapid) Negative (Negative)
[2020-10-31 13:39] LABS: UTC Influenza A Antigen Negative (Negative); UTC Influenza B Antigen Negative (Negative)
== END 2020-10-31 13:33 | disposition home or self-care (01) ==
PROVIDERS: Emergency Provider Nurse Practitioner Family; PCP Emergency Medicine
DX: Z20.822 Contact with and (suspected) exposure to COVID-19 (principal); J20.9 Acute bronchitis, unspecified; B34.9 Viral infection, unspecified; I10 Essential (primary) hypertension; F17.210 Nicotine dependence, cigarettes, uncomplicated; Z86.718 Personal history of other venous thrombosis and embolism; Z90.49 Acquired absence of other specified parts of digestive tract; Z88.0 Allergy status to penicillin; Z88.1 Allergy status to other antibiotic agents
CPT/HCPCS: 87804; 87880; 99202; G0463; U0003

== ENCOUNTER 2020-12-15 09:12 | Emergency (ER) | payer OTHER, SELFPAY ==
[2020-12-15 09:26] VITALS: BP 136/89; PULSE 72; RESP 19; TEMP 36.9; O2SAT 99; BMI 31.5
[2020-12-15 09:28] VITALS: BP 136/89; PULSE 72; RESP 21; TEMP 36.9; O2SAT 99; BMI 31.5
--- NOTE | 2020-12-15 09:38 | HMH.EDUTC ---
[facility] [place] Clinical Impression: Exposure to COVID-19 virus Disposition: Home, Self-Care Condition on Discharge: Good Instructions: DI for COVID-19 (Suspected or Confirmed ), Coronavirus Disease 2019, Preventing the Spread of Coronavirus Discharge Instructions Additional Instructions: *Monitor Temp, Over the counter Motrin or Tylenol as directed/as needed Tylenol every 4 hours and Motrin every 6 hours (as long as your family doctor has told you that you can take it) for fever or pain. and straight to ER if unable to lower temp less than 101.0 after medication given Make sure to drink plenty of fluids and eat healthy Follow up IMMEDIATELY for new or worsening symptoms or no Noticeable improvement over the next 48-72 hours. 911 for difficulty breathing or swallowing You were tested for today for COVID19 your test result should be back in the next 24-48 hours, you may call to the [facility] to see if your test results are back in the next 48 hours [phone] [facility] hours are 9am-9pm You was given a handout with instructions for Self Quarantine and Self isolation for while you wait on test results and what to do if they are positive If you are positive the Health Dept will be contacting you also Referrals: Gus Potts MD [Primary Care Provider] - As needed Forms: Work/School Release Time of Disposition: 09:45 Medical Decision Making - Rios Inquiry Pt receiving controlled substance: No Rios was queried for this patient: No Vital Signs: 12/15/20 09:26 12/15/20 09:28 12/15/20 09:47 Temperature 98.4 F 98.4 F 98.6 F Temperature Source Oral Oral Pulse Rate 72 Pulse Rate [Right Brachial] 72 72 Respiratory Rate 19 21 21 Blood Pressure 136/89 Blood Pressure [Right Arm] 136/89 136/89 Blood Pressure Mean [Right Arm] 104 104 Blood Pressure Source [Right Arm] Automatic Cuff Blood Pressure Position [Right Arm] Sitting 02 Sat by Pulse Oximetry 99 99 Orders (Tests/Meds): ORDERS Category Date Time Status Covid-19 Nasal PCR ([facility]) Routine Lab 12/15/20 09:20 Received [facility] [place]PI - General Stated complaint: covid exposure, headache,weakness Time Seen by Provider: 12/15/20 09:38 Mode of Arrival: Family Vehicle Description of Symptoms (Recalled from Triage Doc. by RN): Pt states he was exposed to covid last weekend and started having symptoms 3 days ago such as sob, cough, and body aches HEENT Symptoms (Recalled from RN notes): Yes Resp Symptoms (Recalled from RN notes): Yes Skin Symptoms (Recalled from RN notes): No MS Symptoms (Recalled from RN notes): No Functional Status (Recalled from RN notes): wnl - History of Present Illness Provider Complaint: Patient state that he has a history of COPD State that he was exposed to someone last week that tested positive for COVID States that he has been feeling ok but about three days ago he felt a little winded after coughing but that got better and since he has been having body aches and chills States that today he is feeling achy all over an wanted to get tested Denies SOA today - Related Data Home Medications Medication Instructions Recorded Confirmed buprenorphine 8 mg-naloxone 2 mg 1 film BUCCAL DAILY 07/21/19 10/31/20 sublingual film Previous Rx's Medication Instructions Recorded albuterol sulfate 90 mcg/actuation 2 inh INHALATION Q4-6H PRN #1 each 07/21/19 breath activated powder inhaler Doxycycline Hyclate [Doxycycline 100 mg PO Q12 10 Days #20 cap 10/31/20 100mg Capsule] Ondansetron [Zofran 4mg ODT] 4 mg PO Q8HP PRN #12 tab.rapdis 10/31/20 predniSONE [Prednisone 20mg 20 mg PO BID 4 Days #8 tab 10/31/20 Tab] Allergies Allergy/AdvReac Type Severity Reaction Status Date / Time amoxicillin [AMOXICILLIN] Allergy Unknown Verified 09/23/19 09:51 azithromycin [AZITHROMYCIN] Allergy Unknown Verified 09/23/19 09:51 diphenhydramine Allergy Unknown Verified 09/23/19 09:51 [From BENADRYL] Penicillins [PENICILLIN
[2020-12-15 09:47] VITALS: BP 136/89; PULSE 72; RESP 21; TEMP 37; O2SAT 99
== END 2020-12-15 09:47 | disposition home or self-care (01) ==
PROVIDERS: Emergency Provider Nurse Practitioner; PCP Emergency Medicine
DX: Z20.822 Contact with and (suspected) exposure to COVID-19 (principal); J44.9 Chronic obstructive pulmonary disease, unspecified; I10 Essential (primary) hypertension; F17.210 Nicotine dependence, cigarettes, uncomplicated
CPT/HCPCS: 99202; G0463; U0003

== ENCOUNTER 2021-06-22 13:19 | Emergency (ER) | payer OTHER, SELFPAY ==
[2021-06-22 13:21] VITALS: BP 158/100; PULSE 74; RESP 16; TEMP 36.8; O2SAT 98; BMI 28.5
[2021-06-22 13:33] VITALS: BP 157/100; PULSE 69; RESP 20; O2SAT 96
[2021-06-22 13:44] VITALS: BMI 28.5
--- NOTE | 2021-06-22 13:45 | XR_ITS ---
PROCEDURE: XR CHEST PORTABLE CLINICAL HISTORY: cough COMPARISON: CR CXR CHEST(2 VIEWS-NOT PORTABLE) from 03/13/2016 CR XR CHEST PORTABLE from 09/21/2019 CR XR CHEST 2V from 06/13/2020 FINDINGS: The cardiomediastinal silhouette and pulmonary vascularity are within normal limits. The lungs are clear without infiltrates, suspicious nodules, or pleural effusions. Minimal upper thoracic curvature convex right. IMPRESSION: No acute findings. Dictated by: Samy Concepcion MD 06/22/2021 14:21 Samy Concepcion MD in [place] 06/22/2021 14:21
[2021-06-22 13:56] LABS: Basophils # 0.1 K/mm3 (0-0.2); Basophils % 1.2 % (0.1-2.0); Eosinophils # 0.2 K/mm3 (0.0-0.4); Hematocrit 39.2 % (42.0-52.0); Hemoglobin 13.7 g/dL (14.1-18.0); Lymphocytes # 2.3 K/mm3 (0.7-4.5); Lymphocytes % 29.2 % (10-50); Mean Corpuscular HGB Conc 34.8 g/dL (31.8-35.4); Mean Platelet Volume 8.2 fl (7.4-10.4); Monocytes # 0.6 K/mm3 (0.1-1.0); Monocytes % 6.9 % (1.7-9.3); Neutrophils # 4.8 K/mm3 (1.8-7.8); Neutrophils % 59.7 % (37.0-80.0); Platelet Count 339 K/mm3 (142-424); Red Blood Count 4.41 M/mm3 (4.60-6.20); Red Cell Distribution Width 13.1 % (11.5-17.5)
[2021-06-22 14:00] VITALS: BP 134/91; PULSE 71; RESP 20; O2SAT 95
[2021-06-22 14:19] LABS: Alanine Aminotransferase 14 U/L (12-78); Albumin Level 4.4 g/dl (3.5-5.0); Albumin/Globulin Ratio 1.4 (1.1-1.8); Alkaline Phosphatase 94 U/L (38-126); Aspartate Amino Transferase 25 U/L (17-59); Bilirubin,Total 0.7 mg/dl (0.2-1.3); Blood Urea Nitrogen 11 mg/dl (9-20); Calcium 9.2 mg/dl (8.4-10.2); Carbon Dioxide 29 mmol/L (22.0-30.0); Chloride 104 mmol/L (98-107); Creatinine Clearance Estimated 178 mL/min (50-200); Estimated Glomerular Filt Rate 121 ml/min (>60); GFR (African American) 147 ML/MIN (>60); Globulin 3.2 g/dL (1.3-3.2); Glucose 111 mg/dl (74-100); Sodium 137 mmol/L (136-145); Total Protein,Serum 7.6 g/dl (6.3-8.2)
[2021-06-22 14:30] VITALS: BP 146/102; PULSE 58; O2SAT 94
--- NOTE | 2021-06-22 14:34 | HMH.EDGENADL ---
ED Disposition Clinical Impression: Viral upper respiratory infection, Osteoma Headache Qualifiers: Headache type: unspecified Headache chronicity pattern: acute headache Intractability: not intractable Qualified Code(s): R51.9 - Headache, unspecified Disposition: Home, Self-Care Condition on Discharge: Good Instructions: DI for Viral Upper Respiratory Infection -- Adult, DI for Headache Additional Instructions: Continue current medications prescribed for your respiratory infection. Tylenol or ibuprofen for headache. 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 Additional instructions for HEADACHE: See your physician as soon as possible for further evaluation. Return immediately if worsening headache, vomiting, problems with vision or speech, fever, numbness or weakness of the extremities, neck pain or stiffness. Referrals: Gus Potts MD [Primary Care Provider] - Forms: Work/School Release - Critical Care Critical Care Time: No Attestation: On 06/22/21, the high probability of a clinically significant, sudden or life threatening deterioration of the following system(s) required my full and direct attention, intervention and personal management. The time I documented below is in addition to time spent performing reported procedures but includes the following listed in this critical care notation. Medical Decision Making - Rios Inquiry Pt receiving controlled substance: No Vital Signs: 06/22/21 13:21 06/22/21 13:33 06/22/21 14:00 Temperature 98.2 F Temperature Source Oral Pulse Rate 69 71 Pulse Rate [Right] 74 Respiratory Rate 16 20 20 Blood Pressure 157/100 H 134/91 H Blood Pressure [Right Arm] 158/100 H Blood Pressure Mean 114 109 Blood Pressure Mean [Right Arm] 119 Blood Pressure Source [Right Arm] Automatic Cuff Blood Pressure Position [Right Arm] Sitting 02 Sat by Pulse Oximetry 98 96 95 Oxygen Delivery Method Room Air 06/22/21 14:30 06/22/21 15:01 Temperature Temperature Source Pulse Rate 58 L 56 L Pulse Rate [Right] Respiratory Rate Blood Pressure 146/102 H 120/57 L Blood Pressure [Right Arm] Blood Pressure Mean 116 78 Blood Pressure Mean [Right Arm] Blood Pressure Source [Right Arm] Blood Pressure Position [Right Arm] 02 Sat by Pulse Oximetry 94 L 93 L Oxygen Delivery Method - Lab Data Lab Results 06/22/21 13:34: WBC 8.0, RBC 4.41 L, Hgb 13.7 L, Hct 39.2 L, MCV 89.0, MCH 31.0, MCHC 34.8, RDW 13.1, Plt Count 339, MPV 8.2, Neut % (Auto) 59.7, Lymph % (Auto) 29.2, [place] % (Auto) 6.9, Eos % (Auto) 3.0, Baso % (Auto) 1.2, Neut # (Auto) 4.8, Lymph # (Auto) 2.3, [place] # (Auto) 0.6, Eos # (Auto) 0.2, Baso # (Auto) 0.1 06/22/21 13:34: Sodium 137, Potassium 4.2, Chloride 104, Carbon Dioxide 29, Anion Gap 8.2, BUN 11, Creatinine 0.70, Estimated Creat Clear 178, Estimated GFR 121, Est GFR ( Amer) 147, Glucose 111 H, Calcium 9.2, Total Bilirubin 0.7, AST 25, ALT 14, Alkaline Phosphatase 94, Total Protein 7.6, Albumin 4.4, Globulin 3.2, Albumin/Globulin Ratio 1.4 06/22/21 14:30: SARS-CoV-2 (PCR) Not detected, Influenza A Untype (PCR) Not detected, Influenza Type B (PCR) Not detected Result diagrams: 06/22/21 13:34 06/22/21 13:34 Orders (Tests/Meds): ED MEDICATIONS Discontinued Medications Generic Name Dose Route Start Last Admin Trade Name Freq PRN Reason Stop Dose Admin Ketorolac Tromethamine 30 mg 06/22/21 16:45 06/22/21 16:50 Ketorolac 30mg/Ml Vial IV 06/22/21 16:46 30 mg ONCE ONE Administration - Radiology Data #1 Image(s): Chest Image Reviewed: Yes I have reviewed radiologist's interpretation PROCEDURE: XR CHEST PORTABLE CLINICAL HISTORY: cough COMPARISON: CR CXR CHEST(2 VIEWS-NOT PORTABLE) from 03/13/2016 CR XR CHEST PORTABLE from 09/21/2019 CR XR CHEST 2V from 06/13/2020
[2021-06-22 14:38] LABS: Coronavirus 19, PCR Not Detected (NotDetected); Influenza A, PCR Not Detected (NotDetected); Influenza B, PCR Not Detected (NotDetected)
[2021-06-22 14:39] LABS: Anion Gap 8.2 mEq/L (5-15); Potassium 4.2 mmoL/L (3.5-5.1)
--- NOTE | 2021-06-22 14:53 | CT_ITS ---
PROCEDURE: CT HEAD/BRAIN WO CON CLINICAL INDICATION: headache COMPARISON: CT HDWO CT HEAD W/O CONTRAST from 02/26/2016 TECHNIQUE: Axial images obtained. All CT scans at the facility use one or more dose reduction, viz: automated exposure control, ma/kV adjustment per patient size (including targeted exams where dose is matched to indication, i.e. head), or iterative reconstruction technique. FINDINGS: No midline shift, mass effect, intracranial hemorrhage, hydrocephalus, or extra-axial fluid collection is evident. The calvarium has an unremarkable appearance. No mastoid effusion. There is a large osteoma in the frontal sinus measuring 4.6 cm transverse and up to 2 cm AP and 3 cm cephalad caudad.. The osteoma has enlarged since 02/26/2016 previously measuring 3.8 x 2 cm,. This lesion extends into both left and right aspect of the frontal sinuses more so on the left. No obvious underlying bony destruction. There is partial opacification of the left aspect of the frontal sinus which was not present on the previous exam. IMPRESSION: No acute intracranial findings. Enlarging large frontal sinus osteoma. Dictated by: Samy Concepcion MD 06/22/2021 16:09 Samy Concepcion MD in [place] 06/22/2021 16:09
[2021-06-22 15:01] VITALS: BP 120/57; PULSE 56; O2SAT 93
[2021-06-22 16:57] VITALS: BP 120/85; PULSE 72; RESP 16; TEMP 36.8; O2SAT 98
== END 2021-06-22 16:57 | disposition home or self-care (01) ==
PROVIDERS: Emergency Provider Emergency Medicine; PCP Emergency Medicine
DX: J06.9 Acute upper respiratory infection, unspecified (principal); Z20.822 Contact with and (suspected) exposure to COVID-19; D16.9 Benign neoplasm of bone and articular cartilage, unspecified; I10 Essential (primary) hypertension; F17.210 Nicotine dependence, cigarettes, uncomplicated; Z88.0 Allergy status to penicillin
CPT/HCPCS: 70450; 71045; 80053; 85025; 96374; 99283; C9803; U0003; U0005

== ENCOUNTER → 2021-06-22 19:59 | Outpatient (CLI) | payer OTHER, SELFPAY | PROVIDERS: Visit Provider Nurse Practitioner Family | DX: Z20.822 Contact with and (suspected) exposure to COVID-19 (principal) | CPT/HCPCS: C9803; U0003; U0005 ==

== ENCOUNTER → 2021-08-15 18:10 | Outpatient (CLI) | payer OTHER, SELFPAY | PROVIDERS: PCP Emergency Medicine; Visit Provider Nurse Practitioner | DX: Z20.822 Contact with and (suspected) exposure to COVID-19 (principal) | CPT/HCPCS: C9803; U0003; U0005 ==

== ENCOUNTER → 2021-09-11 08:33 | Outpatient (CLI) | payer OTHER, SELFPAY ==
[2021-09-12 06:53] LABS: Covid-19 Nasal PCR Sendout Lex NOT DETECTED
== END ==
PROVIDERS: Visit Provider Nurse Practitioner
DX: Z20.822 Contact with and (suspected) exposure to COVID-19 (principal)
CPT/HCPCS: C9803; U0004; U0005

== ENCOUNTER → 2021-09-12 16:00 | Outpatient (CLI) | payer OTHER, SELFPAY | PROVIDERS: Visit Provider Physician Assistant | DX: Z11.52 Encounter for screening for COVID-19 (principal); R43.2 Parageusia | CPT/HCPCS: C9803; U0003; U0005 ==

== ENCOUNTER 2021-11-24 16:54 | Emergency (ER) | payer OTHER, SELFPAY ==
--- NOTE | 2021-11-24 16:54 | ECG_ITS ---
APPROVED REPORT Exam: Resting ECG HR:68 bpm ECG Measurements Heart Rate 68 AXES RI 186 P 51 QRSd 78 QRS 60 QT 393 T 40 QTc 409 Conclusion SINUS RHYTHM NORMAL ECG UNCONFIRMED REPORT Electronically signed by : Jace Leon MD 11/25/2021 08:09:57
[2021-11-24 16:58] VITALS: BP 156/98; PULSE 72; RESP 16; TEMP 36.8; O2SAT 98; BMI 28.5
--- NOTE | 2021-11-24 17:10 | XR_ITS ---
PROCEDURE INFORMATION: Exam: XR Chest Exam date and time: 11/24/2021 5:15 PM Age: 46 years old Clinical indication: Chest wall pain; Additional info: Chest pain TECHNIQUE: Imaging protocol: XR of the chest. Views: 1 view. COMPARISON: CR XR CHEST PORTABLE 06/22/2021 1:54 PM FINDINGS: Lungs: Unremarkable. No consolidation. Pleural spaces: Unremarkable. No pleural effusion. No pneumothorax. Heart/Mediastinum: Unremarkable. No cardiomegaly. Bones/joints: Unremarkable. IMPRESSION: No acute findings.
[2021-11-24 17:17] LABS: Basophils # 0.1 K/mm3 (0-0.2); Basophils % 1.6 % (0.1-2.0); Eosinophils # 0.2 K/mm3 (0.0-0.4); Eosinophils % 3.2 % (0.1-12.0); Hematocrit 36.7 % (42.0-52.0); Hemoglobin 12.5 g/dL (14.1-18.0); Lymphocytes # 2.1 K/mm3 (0.7-4.5); Lymphocytes % 39.8 % (10-50); Mean Corpuscular Hemoglobin 30.5 pg (27.0-31.2); Mean Corpuscular Volume 89.7 fl (80-94); Mean Platelet Volume 7.3 fl (7.4-10.4); Monocytes # 0.3 K/mm3 (0.1-1.0); Monocytes % 5.9 % (1.7-9.3); Neutrophils # 2.7 K/mm3 (1.8-7.8); Neutrophils % 49.6 % (37.0-80.0); Platelet Count 292 K/mm3 (142-424); Red Cell Distribution Width 13.3 % (11.5-17.5); White Blood Count 5.3 K/mm3 (4.8-10.8)
[2021-11-24 17:19] LABS: Chloride 107 mmol/L (98-107); Potassium 3.7 mmoL/L (3.5-5.1); Sodium 139 mmol/L (136-145)
[2021-11-24 17:22] LABS: Anion Gap 9.7 mEq/L (5-15); Blood Urea Nitrogen 11 mg/dl (9-20); Carbon Dioxide 26 mmol/L (22.0-30.0); Creatinine Clearance Estimated 154 mL/min (50-200); Estimated Glomerular Filt Rate 104 ml/min (>60); GFR (African American) 125 ML/MIN (>60)
[2021-11-24 17:23] LABS: Calcium 8.2 mg/dl (8.4-10.2); Glucose 118 mg/dl (74-100)
[2021-11-24 17:30] VITALS: BP 135/82; PULSE 66; RESP 18; O2SAT 97
[2021-11-24 17:32] LABS: NT Pro Brain Natriuretic Pep. 72.8 pg/mL (0-125)
[2021-11-24 17:37] LABS: Troponin I < 0.01 ng/ml (0.00-0.034)
--- NOTE | 2021-11-24 18:11 | HMH.EDGENADL ---
ED Disposition Clinical Impression: Viral upper respiratory infection, Dyspepsia Disposition: Home, Self-Care Condition on Discharge: Good Instructions: DI for Viral Upper Respiratory Infection -- Adult Prescriptions: Ondansetron [Zofran 4mg ODT] 4 mg PO BIDP PRN #10 tab PRN Reason: Nausea Transmission Status: Pending to [facility] Referrals: Provider,Vania, [Primary Care Provider] - Gus Potts MD [Staff Physician] - - Critical Care Critical Care Time: No Attestation: On 11/24/21, the high probability of a clinically significant, sudden or life threatening deterioration of the following system(s) required my full and direct attention, intervention and personal management. The time I documented below is in addition to time spent performing reported procedures but includes the following listed in this critical care notation. Medical Decision Making - Medical Records Medical records reviewed: Yes: I reviewed the patient's medical records. - Rios Inquiry Pt receiving controlled substance: No Vital Signs: 11/24/21 16:58 11/24/21 17:30 Temperature 98.2 F Temperature Source Oral Pulse Rate 66 Pulse Rate [Radial] 72 Respiratory Rate 16 18 Blood Pressure 135/82 Blood Pressure [Right Arm] 156/98 H Blood Pressure Mean 99 Blood Pressure Mean [Right Arm] 117 Blood Pressure Position [Right Arm] Sitting 02 Sat by Pulse Oximetry 98 97 Oxygen Delivery Method Room Air - Lab Data Lab Results 11/24/21 17:05: WBC 5.3, RBC 4.10 L, Hgb 12.5 L, Hct 36.7 L, MCV 89.7, MCH 30.5, MCHC 34.0, RDW 13.3, Plt Count 292, MPV 7.3 L, Neut % (Auto) 49.6, Lymph % (Auto) 39.8, [place] % (Auto) 5.9, Eos % (Auto) 3.2, Baso % (Auto) 1.6, Neut # (Auto) 2.7, Lymph # (Auto) 2.1, [place] # (Auto) 0.3, Eos # (Auto) 0.2, Baso # (Auto) 0.1 11/24/21 17:05: Sodium 139, Potassium 3.7, Chloride 107, Carbon Dioxide 26, Anion Gap 9.7, BUN 11, Creatinine 0.80, Estimated Creat Clear 154, Estimated GFR 104, Est GFR ( Amer) 125, Glucose 118 H, Calcium 8.2 L, Troponin I < 0.01 11/24/21 17:05: NT-Pro-B Natriuret Pep 72.8 Result diagrams: 11/24/21 17:05 11/24/21 17:05 Orders (Tests/Meds): ED MEDICATIONS Discontinued Medications Generic Name Dose Route Start Last Admin Trade Name Freq PRN Reason Stop Dose Admin Ketorolac Tromethamine 30 mg 11/24/21 17:11 11/24/21 17:18 Ketorolac 30mg/Ml Vial IV 11/24/21 17:12 30 mg ONCE ONE Administration Ondansetron HCl 4 mg 11/24/21 17:11 11/24/21 17:18 Ondansetron 4mg/2ml Vial IV 11/24/21 17:12 4 mg ONCE ONE Administration ORDERS Category Date Time Status Troponin I Q3H Lab 11/24/21 20:15 Ordered Troponin I Q3H Lab 11/24/21 23:15 Ordered - Radiology Data #1 Image(s): Chest Image Reviewed: Yes I reviewed the patient's radiology results, Yes I reviewed the patient's radiology image, Yes I have reviewed radiologist's interpretation Preliminary Findings: Normal/NAD - ECG Data Tracing #1 I reviewed this ECG and interpreted as documented below: ECG initial impression date: 11/24/21 ECG initial impression time: 16:54 ECG normal with no acute: arrhythmias, ischemia, conduction abnormalities, chamber hypertrophy Normal Sinus Rhythm: Yes - Reevaluation(s) Time: 18:38 Reevaluation #1: On reevaluation, patient is feeling better. Laboratory work is relatively unremarkable. I do believe the patient is having some dyspepsia as well as URI. Patient needs follow-up with PCP in 48 hours. Given strict return precautions. Verbalized understanding. Medical Decision Narrative: 46-year-old male presenting with some epigastric chest discomfort. Symptoms are consistent with dyspepsia versus peptic ulcer disease. Patient low risk for acute coronary syndrome based on heart score. Work-up initiated. General Adult HPI - General Chief complaint: PAIN Stated complaint: chest pain Time Seen by Provider: 11/24/21 17:05 Mode of
[2021-11-24 19:14] VITALS: BP 125/74; PULSE 74; RESP 16; TEMP 36.6; O2SAT 98
== END 2021-11-24 19:15 | disposition home or self-care (01) ==
PROVIDERS: Emergency Provider Emergency Medicine
DX: J06.9 Acute upper respiratory infection, unspecified (principal); R10.13 Epigastric pain; I10 Essential (primary) hypertension; F17.210 Nicotine dependence, cigarettes, uncomplicated
CPT/HCPCS: 71045; 80048; 83880; 84484; 85025; 93005; 96374; 96375; 99284; J2405

== ENCOUNTER → 2022-03-30 12:18 | Outpatient (CLI) | payer OTHER, SELFPAY ==
--- NOTE | 2022-03-30 13:08 | MR_ITS ---
FINAL REPORT CLINICAL HISTORY: MIGRAINES X'S 6 MONTHS. NKI. PT STATES THERE IS SWELLING GOING ON IN THE FRONTAL SINUS AREA. FINDINGS: Multiplanar MR imaging of the brain was performed without contrast. Motion on some of the images decreases exam sensitivity. There is no evidence of intracranial hemorrhage or mass. The ventricular size is normal. There is no evidence of shift of the midline structures. No abnormal extra-axial fluid collection is identified. The posterior fossa and brainstem have an unremarkable appearance. No area of abnormal restricted diffusion is identified. Normal major vessel vascular flow voids are seen. 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 IMPRESSION: No acute intracranial abnormality. Reviewed, Interpreted and Dictated by Chester Dejesus III, MD Transcribed by Hugo Espinal Authenticated and . [facility]
--- NOTE | 2022-03-30 13:08 | MR_ITS ---
FINAL REPORT CLINICAL HISTORY: eval for stenosis, aneursym MIGRAINES X'S 6 MONTHS. NKI. PT STATES THERE IS SWELLING GOING ON IN THE FRONTAL SINUS AREA. FINDINGS: Multiple projection images of the brain arterial vasculature were obtained without contrast. The raw data images were also reviewed. The distal internal carotid, distal vertebral and basilar arteries have an unremarkable appearance without evidence of significant stenosis or occlusion. The proximal anterior, middle and posterior cerebral arteries have an unremarkable appearance. There is no evidence of significant stenosis or major branch occlusion. No aneurysm or vascular malformation is identified. IMPRESSION: Unremarkable MR angiogram of the head. Reviewed, Interpreted and Dictated by Chester Dejesus III, MD Transcribed by Hugo Espinal Authenticated and [facility]
[2022-03-30 14:11] LABS: Basophils # 0.1 K/mm3 (0-0.2); Basophils % 0.9 % (0.1-2.0); Eosinophils # 0.4 K/mm3 (0.0-0.4); Eosinophils % 4.8 % (0.1-12.0); Hematocrit 39.9 % (42.0-52.0); Hemoglobin 12.6 g/dL (14.1-18.0); Lymphocytes # 2.4 K/mm3 (0.7-4.5); Lymphocytes % 32.5 % (10-50); Mean Corpuscular HGB Conc 31.6 g/dL (31.8-35.4); Mean Corpuscular Hemoglobin 29.5 pg (27.0-31.2); Mean Corpuscular Volume 93.3 fl (80-94); Mean Platelet Volume 7.7 fl (7.4-10.4); Monocytes # 0.4 K/mm3 (0.1-1.0); Monocytes % 5.1 % (1.7-9.3); Neutrophils # 4.3 K/mm3 (1.8-7.8); Neutrophils % 56.8 % (37.0-80.0); Platelet Count 342 K/mm3 (142-424); Red Blood Count 4.28 M/mm3 (4.60-6.20); Red Cell Distribution Width 13.5 % (11.5-17.5); White Blood Count 7.5 K/mm3 (4.8-10.8)
[2022-03-30 14:42] LABS: Alanine Aminotransferase 16 U/L (12-78); Albumin Level 4.1 g/dl (3.5-5.0); Albumin/Globulin Ratio 1.4 (1.1-1.8); Alkaline Phosphatase 104 U/L (38-126); Anion Gap 8.9 mEq/L (5-15); Aspartate Amino Transferase 22 U/L (17-59); Blood Urea Nitrogen 11 mg/dl (9-20); Calcium 9.3 mg/dl (8.4-10.2); Carbon Dioxide 30 mmol/L (22.0-30.0); Chloride 107 mmol/L (98-107); Estimated Glomerular Filt Rate 121 ml/min (>60); GFR (African American) 146 ML/MIN (>60); Globulin 2.9 g/dL (1.3-3.2); Glucose 91 mg/dl (74-100); Potassium 4.9 mmoL/L (3.5-5.1); Sodium 141 mmol/L (136-145)
[2022-03-30 14:53] LABS: Bilirubin,Total < 0.1 mg/dl (0.2-1.3)
[2022-03-30 15:13] LABS: Thyroid Stimulating Hormone 0.76 uIU/mL (0.465-4.68)
[2022-03-30 15:49] LABS: Folate 9.94 ng/mL; Vitamin B12 208 pg/mL (239-931)
== END ==
PROVIDERS: PCP Physician Assistant; Visit Provider Nurse Practitioner Family
DX: G43.709 Chronic migraine without aura, not intractable, without status migrainosus (principal); R42 Dizziness and giddiness; D16.9 Benign neoplasm of bone and articular cartilage, unspecified; F19.11 Other psychoactive substance abuse, in remission; G47.00 Insomnia, unspecified; G47.19 Other hypersomnia; J44.1 Chronic obstructive pulmonary disease with (acute) exacerbation; R06.83 Snoring; Z72.0 Tobacco use; Z86.79 Personal history of other diseases of the circulatory system
CPT/HCPCS: 36415; 70544; 70551; 80053; 82607; 82746; 84443; 85025

== ENCOUNTER → 2022-05-02 20:21 | Outpatient (CLI) | payer OTHER, SELFPAY | PROVIDERS: PCP Emergency Medicine; Visit Provider Nurse Practitioner Family | DX: G47.30 Sleep apnea, unspecified (principal); R40.0 Somnolence; R06.83 Snoring; R51.9 Headache, unspecified; E66.9 Obesity, unspecified | CPT/HCPCS: 95810 ==

== ENCOUNTER → 2022-05-25 07:55 | Outpatient (CLI) | payer OTHER, SELFPAY ==
--- NOTE | 2022-05-25 09:16 | PC.NURSE ---
PFT completed without incident. Albuterol 0.083% given via HHN per protocol Pt tolerated tx well.
== END ==
PROVIDERS: PCP Nurse Practitioner Family; Visit Provider Nurse Practitioner Family
DX: J44.1 Chronic obstructive pulmonary disease with (acute) exacerbation (principal)
CPT/HCPCS: 94060; 94726; 94729

== ENCOUNTER 2022-06-18 12:26 | Emergency (ER) | payer OTHER, SELFPAY ==
[2022-06-18 13:56] VITALS: BP 156/90; PULSE 66; RESP 18; TEMP 36.7; O2SAT 98; BMI 29.8
--- NOTE | 2022-06-18 14:13 | EXP.UTC ---
Discharge Plan Disposition Patient Disposition: Home, Self-Care Condition: Good Prescriptions Prescriptions: New doxycycline hyclate 100 mg capsule 100 mg PO BID Qty: 20 0RF prednisone 20 mg tablet 20 mg PO BID Qty: 10 0RF benzonatate 100 mg capsule 100 mg PO TID PRN (Reason: cough) Qty: 30 0RF No Action buprenorphine-naloxone 8-2 mg tablet, sublingual 1 tab SL DAILY Ubrelvy 100 mg tablet 100 mg PO ONCE PRN (Reason: migraine prevention) Qty: 10 5RF Rx Instructions: Take 100 mg by mouth at onset of headache. May repeat 100 mg after 2 hours if symptoms persist. Max dose 200 mg or 2 tablets in 24 hours. propranolol 80 mg tablet 80 mg PO BID Qty: 60 2RF albuterol sulfate 90 mcg/actuation aerosol powdr breath activated 2 inh inhalation Q4-6H PRN (Reason: shortness of breath or wheezing) Qty: 1 0RF bupropion HCl [Wellbutrin SR] 150 mg tablet sustained-release 12 hr 150 mg PO DAILY Qty: 30 2RF albuterol sulfate 90 mcg/actuation HFA aerosol inhaler 2 inh inhalation Q6H PRN (Reason: shortness of breath or wheezing) 90 Days Qty: 8.5 2RF Dulera 200-5 mcg/actuation HFA aerosol inhaler 2 puff inhalation BID 90 Days Qty: 13 2RF Referrals Follow up/Referrals: Gus Potts MD [Primary Care Provider] - See instructions Activity Restrictions/Add. Instructions Additional Instructions/Restrictions: Start antibiotic today. Be sure to complete entire prescription even if feeling better Monitor temp. Tylenol every 4 hours as needed and / or ibuprofen every 6 hours as needed ( As long as your primary care physician has told you that it ok to take both. For fever/aches/pains ER if no less than 101 despite Tylenol or Motrin Humidifier/vaporizer or hot steamy shower Inhaler every 4-6 hours as needed like we discussed. If unsure how to use it, ask pharmacist to demonstrate how. Should help open airways and improve cough, wheezing, and shortness of breath *Tessalon Perles will not cause drowsiness but use at bedtime to help stop cough so that you may get some rest. *Start steroid today. Helps with inflammation therefore, cough and wheezing. Follow directions on the package. Reviewed side effects. Patient reports taking them before. Follow up IMMEDIATELY for new or worsening of symptoms OR no noticeable improvement over the next 48-72 hours. 911 immediately for any life threatening symptoms such as chest pain or difficulty breathing Clinical Impressions Clinical Impression: Bronchitis, Sinusitis Stand Alone Forms Stand Alone Forms: Work/School Release Discharge ED Provider[place] [facility] [place] General Stated complaint: Cough,fever,Vomiting Mode of Arrival: Ambulatory Source of Information: Patient Limitations: No Limitations Time Seen by Provider: 06/18/22 14:13 Description of Symptoms (Recalled from Triage Doc. by RN): PT TO [facility] WITH COUGH, RUNNY NOSE, BODY ACHES AND WATERY EYES SINCE SATURDAY. HEENT Symptoms (Recalled from RN notes): Yes (SINUS PRESSURE) Resp Symptoms (Recalled from RN notes): Yes (CONGESTION) Skin Symptoms (Recalled from RN notes): No MS Symptoms (Recalled from RN notes): No Functional Status (Recalled from RN notes): WDL History of Present Illness Provider Complaint: Patient states that his daughter was sick too States that he has been having body aches, chills, headache, sinus congestion and pressure, cough States that he has continued to feel worse over the last couple of days so he came in to get checked out Related Data Home Medications Medication Instructions Recorded Confirmed buprenorphine 8 mg-naloxone 2 mg 1 tab sublingual DAILY 03/13/22 06/11/22 sublingual tablet Previous Rx's Medication Instructions Recorded ubrogepant 100 mg tablet (Ubrelvy) 100 mg PO ONCE PRN migraine 03/13/22 prevention #10 tabs propranolol 80 mg tablet 80 mg PO BID headache prevention,
[2022-06-18 14:48] VITALS: BP 148/89; PULSE 67; RESP 17; TEMP 36.7; O2SAT 98
[2022-06-18 15:25] LABS: Bordetella Pertussis Not Detected (NotDetected); Chlamydophila Pneumoniae, PCR Not Detected (NotDetected); Coronavirus 19, PCR Not Detected (NotDetected); Coronavirus 229E Not Detected (NotDetected); Coronavirus NL63 Not Detected (NotDetected); Coronavirus OC43 Not Detected (NotDetected); Coronovirus HKU1,PCR Not Detected (NotDetected); Human Metapneumovirus Not Detected (NotDetected); Influenza A, PCR Not Detected (NotDetected); Influenza AH1, 2009 Not Detected (NotDetected); Influenza AH1, PCR Not Detected (NotDetected); Influenza AH3,PCR Not Detected (NotDetected); Influenza B, PCR Not Detected (NotDetected); Mycoplasma Pneumoniae, PCR Not Detected (NotDetected); Parainfluenza 1, PCR Not Detected (NotDetected); Parainfluenza 2, PCR Not Detected (NotDetected); Parainfluenza 3, PCR Not Detected (NotDetected); Parainfluenza 4, PCR Not Detected (NotDetected); Respiratory Syncytial Virus Not Detected (NotDetected)
[2022-06-18 15:26] LABS: Adenovirus,PCR Not Detected (NotDetected)
[2022-06-18 22:49] LABS: Rhinovirus/Enterovirus Detected (NotDetected)
== END 2022-06-18 14:50 | disposition home or self-care (01) ==
PROVIDERS: Emergency Provider Nurse Practitioner; PCP Emergency Medicine
DX: J40 Bronchitis, not specified as acute or chronic (principal); J32.9 Chronic sinusitis, unspecified
CPT/HCPCS: 87581; 87632; 87798; 99212; C9803; G0463; U0003; U0005

== ENCOUNTER → 2022-06-25 16:57 | Outpatient (CLI) | payer OTHER, SELFPAY ==
--- NOTE | 2022-06-25 17:06 | XR_ITS ---
PROCEDURE INFORMATION: Exam: XR Chest Exam date and time: 06/25/2022 5:08 PM Age: 46 years old Clinical indication: Dyspnea and wheezing; Additional info: Dyspnea, wheezing TECHNIQUE: Imaging protocol: Radiologic exam of the chest. Views: 2 views. COMPARISON: CR XR CHEST PORTABLE 11/24/2021 5:15 PM FINDINGS: Lungs: Unremarkable. No consolidation. Pleural spaces: Unremarkable. No pleural effusion. No pneumothorax. Heart/Mediastinum: Unremarkable. No cardiomegaly. Bones/joints: Unremarkable. IMPRESSION: Normal chest.
== END ==
PROVIDERS: PCP Emergency Medicine; Visit Provider Student in an Organized Health Care Education/Training Program
DX: R06.00 Dyspnea, unspecified (principal); R06.2 Wheezing; R11.2 Nausea with vomiting, unspecified
CPT/HCPCS: 71046; 86677

== ENCOUNTER 2022-07-09 13:33 | Emergency (ER) | payer OTHER, SELFPAY ==
--- NOTE | 2022-07-09 13:05 | ECG_ITS ---
APPROVED REPORT Exam: Resting ECG HR:96 bpm ECG Measurements Heart Rate 96 AXES CA 180 P 52 QRSd 77 QRS 60 QT 345 T 36 QTc 398 Conclusion SINUS RHYTHM NONSPECIFIC T-WAVE ABNORMALITY BORDERLINE ECG UNCONFIRMED REPORT Electronically signed by : Jace Leon MD 07/09/2022 21:09:05
[2022-07-09 13:34] VITALS: BP 158/95; PULSE 92; RESP 16; TEMP 37.7; O2SAT 100; BMI 29.8
--- NOTE | 2022-07-09 13:39 | XR_ITS ---
FINAL REPORT TECHNIQUE: Single view chest CLINICAL HISTORY: soa COMPARISON: 06/25/2022 FINDINGS: A single view of the chest was obtained. The heart and mediastinum are within normal limits. The lungs are unchanged from prior exam. There is no pneumothorax. Osseous structures are unremarkable. IMPRESSION: No acute cardiopulmonary process. Reviewed, Interpreted and Dictated by Saurabh Ohara MD Transcribed by Dulce Box Authenticated and [facility]
--- NOTE | 2022-07-09 13:40 | HMH.EDGENADL ---
Discharge Plan Disposition Patient Disposition: Home, Self-Care Condition: Good Prescriptions Prescriptions: No Action buprenorphine-naloxone 8-2 mg tablet, sublingual 1 tab SL DAILY Ubrelvy 100 mg tablet 100 mg PO ONCE PRN (Reason: migraine prevention) Qty: 10 5RF Rx Instructions: Take 100 mg by mouth at onset of headache. May repeat 100 mg after 2 hours if symptoms persist. Max dose 200 mg or 2 tablets in 24 hours. propranolol 80 mg tablet 80 mg PO BID Qty: 60 2RF albuterol sulfate 90 mcg/actuation aerosol powdr breath activated 2 inh inhalation Q4-6H PRN (Reason: shortness of breath or wheezing) Qty: 1 0RF bupropion HCl [Wellbutrin SR] 150 mg tablet sustained-release 12 hr 150 mg PO DAILY Qty: 30 2RF prednisone 20 mg tablet 20 mg PO BID 5 Days Qty: 10 0RF ondansetron 8 mg tablet,disintegrating 8 mg PO Q12H Qty: 30 0RF albuterol sulfate 90 mcg/actuation HFA aerosol inhaler 2 inh inhalation Q6H PRN (Reason: shortness of breath or wheezing) 90 Days Qty: 8.5 2RF Dulera 200-5 mcg/actuation HFA aerosol inhaler 2 puff inhalation BID 90 Days Qty: 13 2RF Referrals Follow up/Referrals: Provider,Referral, MD [Primary Care Provider] - See instructions Activity Restrictions/Add. Instructions Additional Instructions/Restrictions: Rest and drink plenty of fluids. Tylenol as needed for fever and discomfort. Clinical Impressions Clinical Impression: COVID Stand Alone Forms Stand Alone Forms: Work/School Release Discharge ED Provider: Nain [place] General Adult HPI General Chief complaint: Upper Respiratory Infection Stated complaint: body aches Time Seen by Provider: 07/09/22 13:50 History of Present Illness HPI narrative: Patient presents with body aches that began yesterday. Subjective fever is noted. He notes cough and sore throat. Symptoms are described as moderate and worse with coughing. He denies substernal chest pain Related Data Home Medications Medication Instructions Recorded Confirmed buprenorphine 8 mg-naloxone 2 mg 1 tab sublingual DAILY 03/13/22 06/25/22 sublingual tablet Previous Rx's Medication Instructions Recorded ubrogepant 100 mg tablet (Ubrelvy) 100 mg PO ONCE PRN migraine 03/13/22 prevention #10 tabs propranolol 80 mg tablet 80 mg PO BID headache prevention, 04/05/22 anxiety #60 tabs albuterol sulfate 90 mcg/actuation 2 inh inhalation Q4-6H PRN 05/09/22 breath activated powder inhaler shortness of breath or wheezing #1 ea bupropion HCl 150 mg tablet,12 hr 150 mg PO DAILY #30 ea 05/09/22 sustained-release (Wellbutrin SR) albuterol sulfate 90 mcg/actuation 2 inh inhalation Q6H PRN shortness 06/11/22 aerosol inhaler of breath or wheezing 90 days #8.5 grams mometasone-formoterol HFA 200 2 puff inhalation BID 90 days #13 06/12/22 mcg-5 mcg/actuation aerosol grams inhaler (Dulera) ondansetron 8 mg disintegrating 8 mg PO Q12H #30 tabs 06/25/22 tablet prednisone 20 mg tablet 20 mg PO BID 5 days #10 tabs 06/25/22 Allergies Allergy/AdvReac Type Severity Reaction Status Date / Time Sulfa (Sulfonamide Allergy Severe Other Verified 07/09/22 13:42 Antibiotics) amoxicillin [AMOXICILLIN] Allergy Unknown Verified 07/09/22 13:42 azithromycin [AZITHROMYCIN] Allergy Unknown Verified 07/09/22 13:42 diphenhydramine Allergy Unknown Verified 07/09/22 13:42 [From BENADRYL] Penicillins [PENICILLINS] Allergy Unknown Verified 07/09/22 13:42 PFSH PFSH Medical History Allergic rhinitis Anxiety Asthma 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
--- NOTE | 2022-07-09 13:41 | PC.NURSE ---
Radiology at [facility] for portable chest
[2022-07-09 13:49] LABS: Influenza A, PCR Not Detected (NotDetected); Influenza B, PCR Not Detected (NotDetected)
[2022-07-09 14:00] VITALS: BP 143/98; PULSE 84; O2SAT 96
[2022-07-09 14:15] VITALS: BP 106/62; PULSE 82; O2SAT 96
--- NOTE | 2022-07-09 14:19 | PC.NURSE ---
rounded on pt at this time, medicated per OCT and pt requested to use bathroom. No other needs at this time
[2022-07-09 14:59] LABS: Coronavirus 19, PCR Detected (NotDetected)
[2022-07-09 15:36] VITALS: BP 143/84; PULSE 72; RESP 16; TEMP 37.2; O2SAT 98
== END 2022-07-09 15:43 | disposition home or self-care (01) ==
PROVIDERS: Emergency Provider Emergency Medicine
DX: U07.1 COVID-19 (principal); Z79.899 Other long term (current) drug therapy; Z88.0 Allergy status to penicillin; Z88.1 Allergy status to other antibiotic agents; Z88.2 Allergy status to sulfonamides; Z88.8 Allergy status to other drugs, medicaments and biological substances; F41.9 Anxiety disorder, unspecified; J44.9 Chronic obstructive pulmonary disease, unspecified; Z85.3 Personal history of malignant neoplasm of breast; Z85.54 Personal history of malignant neoplasm of ureter; Z72.0 Tobacco use; F11.11 Opioid abuse, in remission
CPT/HCPCS: 71045; 93005; 99284; C9803; U0003; U0005

== ENCOUNTER 2022-09-11 08:35 | Emergency (ER) | payer OTHER, SELFPAY ==
[2022-09-11] VITALS (7 sets, daily range): BP systolic 127–156; BP diastolic 67–99; PULSE 62–77; RESP 13–17; TEMP 36.9; O2SAT 95–98; BMI 29.1
--- NOTE | 2022-09-11 08:35 | ECG_ITS ---
APPROVED REPORT Exam: Resting ECG HR:79 bpm ECG Measurements Heart Rate 79 AXES MI 191 P 59 QRSd 79 QRS 61 QT 316 T 44 QTc 350 Conclusion SINUS RHYTHM NONSPECIFIC T-WAVE ABNORMALITY BORDERLINE ECG UNCONFIRMED REPORT Electronically signed by : Jace Leon MD 09/11/2022 19:52:41
--- NOTE | 2022-09-11 08:40 | HMH.EDGENADL ---
Discharge Plan Disposition Patient Disposition: Home, Self-Care Condition: Good Prescriptions Prescriptions: New prednisone 20 mg tablet 20 mg PO BID Qty: 10 0RF No Action buprenorphine-naloxone 8-2 mg tablet, sublingual 1 tab SL DAILY Ubrelvy 100 mg tablet 100 mg PO ONCE PRN (Reason: migraine prevention) Qty: 10 5RF Rx Instructions: Take 100 mg by mouth at onset of headache. May repeat 100 mg after 2 hours if symptoms persist. Max dose 200 mg or 2 tablets in 24 hours. propranolol 80 mg tablet 80 mg PO BID Qty: 60 2RF albuterol sulfate 90 mcg/actuation aerosol powdr breath activated 2 inh inhalation Q4-6H PRN (Reason: shortness of breath or wheezing) Qty: 1 0RF bupropion HCl [Wellbutrin SR] 150 mg tablet sustained-release 12 hr 150 mg PO DAILY Qty: 30 2RF ondansetron 8 mg tablet,disintegrating 8 mg PO Q12H Qty: 30 0RF albuterol sulfate 90 mcg/actuation HFA aerosol inhaler 2 inh inhalation Q6H PRN (Reason: shortness of breath or wheezing) 90 Days Qty: 8.5 2RF Dulera 200-5 mcg/actuation HFA aerosol inhaler 2 puff inhalation BID 90 Days Qty: 13 2RF Paxlovid (EUA) 300 mg (150 mg x 2)-100 mg tablets,dose pack See Rx Instructions PO .COMPLEX Qty: 30 0RF Rx Instructions: take TWO 150 mg tablets of nirmatrelvir with ONE 100 mg tablet of ritonavir twice daily for 5 days PO prednisone 20 mg tablet 20 mg PO BID 5 Days Qty: 10 0RF Referrals Follow up/Referrals: Gus Potts MD [Primary Care Provider] - See instructions Activity Restrictions/Add. Instructions Additional Instructions/Restrictions: See Dr. Barrientos, gate supervisor, in his office tomorrow or at 10 AM. Follow-up with your primary care provider, call for appointment. Prednisone as prescribed. Return to the emergency department if symptoms worsen. Clinical Impressions Clinical Impression: Shortness of breath Instructions Patient Instructions: DI for Shortness of Breath Discharge ED Provider: Bi Silver General Adult HPI General Chief complaint: Dizziness Stated complaint: CP Time Seen by Provider: 09/11/22 08:55 History of Present Illness HPI narrative: Patient complains of shortness of breath and a possible syncopal episode. He states that he felt some nasal congestion and stopped up today before going to work. At work he simply walked across the room and felt severe dyspnea on exertion, which is unusual for him. He had some persistent shortness of breath, used his asthma inhaler twice without improvement. He says he sat down at 1 point and felt like he fell asleep for a brief second . Says that he had a very brief dream about moving a car. Unclear whether he is describing syncope or not. He had some slight heartburn which he describes as a discomfort in his lower sternal area which is resolved. No leg pain or swelling. No recent hospitalizations, surgery, travel. He is a smoker and has asthma and COPD. He does not have any known heart problems. He has not had a previous cardiac work-up such as stress test or heart cath. He says he is on medications for hypertension (states he takes propanolol for migraine prevention and for hypertension). He does not have diabetes or hyperlipidemia or family history of heart disease. Related Data Home Medications Medication Instructions Recorded Confirmed buprenorphine 8 mg-naloxone 2 mg 1 tab sublingual DAILY 03/13/22 06/25/22 sublingual tablet Previous Rx's Medication Instructions Recorded ubrogepant 100 mg tablet (Ubrelvy) 100 mg PO ONCE PRN migraine 03/13/22 prevention #10 tabs propranolol 80 mg tablet 80 mg PO BID headache prevention, 04/05/22 anxiety #60 tabs albuterol sulfate 90 mcg/actuation 2 inh inhalation Q4-6H PRN 05/09/22 breath activated powder inhaler shortness of breath or wheezing #1 ea bupropion HCl 150 mg tablet,12 hr 150 mg PO DAILY #30 ea 05/09/22 sustained-release (Well
--- NOTE | 2022-09-11 08:50 | XR_ITS ---
FINAL REPORT TECHNIQUE: Chest PA & Lateral CLINICAL HISTORY: shortness of breath; chest pain FINDINGS: 2 views of the chest were performed. The heart size is normal. The mediastinum is within normal limits. There is mild scarring in the right lung apex. There are no pleural effusions. There is no pneumothorax. The bony thorax appears intact. IMPRESSION: No acute cardiopulmonary process. Reviewed, Interpreted and Dictated by Chester Dejesus III, MD Transcribed by Hugo Espinal Authenticated and [facility]
--- NOTE | 2022-09-11 08:54 | PC.NURSE ---
SO at BS
--- NOTE | 2022-09-11 08:55 | PC.NURSE ---
WESLEY AL at for patient eval
--- NOTE | 2022-09-11 09:09 | PC.NURSE ---
pt to radiology via WC with radial drill press set up operator
[2022-09-11 09:19] LABS: Coronavirus 19, PCR Not Detected (NotDetected); Influenza A, PCR Not Detected (NotDetected); Influenza B, PCR Not Detected (NotDetected)
--- NOTE | 2022-09-11 09:20 | PC.NURSE ---
pt given a mouth swab for his dry mouth, SO at BS, both deny any other needs at this time
[2022-09-11 09:23] LABS: Basophils # 0.1 K/mm3 (0-0.2); Basophils % 1.4 % (0.1-2.0); Eosinophils # 0.3 K/mm3 (0.0-0.4); Eosinophils % 3.6 % (0.1-12.0); Hematocrit 41.3 % (42.0-52.0); Hemoglobin 13.7 g/dL (14.1-18.0); Lymphocytes % 24.2 % (10-50); Mean Corpuscular HGB Conc 33.2 g/dL (31.8-35.4); Mean Corpuscular Hemoglobin 29.4 pg (27.0-31.2); Mean Corpuscular Volume 88.4 fl (80-94); Mean Platelet Volume 7.8 fl (7.4-10.4); Monocytes # 0.5 K/mm3 (0.1-1.0); Neutrophils # 5.4 K/mm3 (1.8-7.8); Neutrophils % 64.8 % (37.0-80.0); Platelet Count 341 K/mm3 (142-424); Red Blood Count 4.68 M/mm3 (4.60-6.20); Red Cell Distribution Width 13.1 % (11.5-17.5); White Blood Count 8.3 K/mm3 (4.8-10.8)
[2022-09-11 09:29] LABS: Alanine Aminotransferase 27 U/L (12-78); Albumin Level 4.7 g/dl (3.5-5.0); Alkaline Phosphatase 91 U/L (38-126); Anion Gap 14.8 mEq/L (5-15); Aspartate Amino Transferase 33 U/L (17-59); Bilirubin,Direct 0.2 mg/dl (0.0-0.4); Bilirubin,Indirect 0.5 mg/dL (0.0-0.9); Bilirubin,Total 0.7 mg/dl (0.2-1.3); Bilirubin,Unconjugated 0.6 mg/dL (0.0-1.1); Blood Urea Nitrogen 10 mg/dl (9-20); Calcium 9.1 mg/dl (8.4-10.2); Carbon Dioxide 24 mmol/L (22.0-30.0); Chloride 106 mmol/L (98-107); Creatinine Clearance Estimated 157 mL/min (50-200); Estimated Glomerular Filt Rate 104 ml/min (>60); GFR (African American) 125 ML/MIN (>60); Glucose 99 mg/dl (74-100); Potassium 3.8 mmoL/L (3.5-5.1); Sodium 141 mmol/L (136-145); Total Protein,Serum 8.2 g/dl (6.3-8.2)
[2022-09-11 09:34] LABS: D-Dimer 0.57 ug/mL (0.0-0.5)
--- NOTE | 2022-09-11 09:38 | CT_ITS ---
FINAL REPORT TECHNIQUE: Thin section axial CT images were obtained from the lung apices to the upper abdomen. IV contrast was administered. MIP 3-D reformats were obtained. This study was performed with techniques to keep radiation doses as low as reasonably achievable (ALARA). Individualized dose reduction techniques using automated exposure control or adjustment of mA and/or kV according to the patient's size were employed. CLINICAL HISTORY: soa, elev d-dimer, smoker FINDINGS: The heart size is normal. There is mild mediastinal and hilar adenopathy that is nonspecific. There are mildly enlarged right axillary lymph nodes measuring up to 21 mm that are nonspecific. There is no filling defect to suggest PE. There is no aortic dissection. There is no pericardial effusion. There are mild changes of emphysema with areas of scarring. There are several small nodules some of which are calcified. No pleural effusion. Limited images of the upper abdomen demonstrate a small cyst in the left hepatic lobe. There has been cholecystectomy. IMPRESSION: No pulmonary embolism or aortic dissection. Mild nonspecific adenopathy is favored to be reactive. Reviewed, Interpreted and Dictated by Chester Dejesus III, MD Transcribed by Hugo Espinal Authenticated and [facility]
[2022-09-11 09:40] LABS: NT Pro Brain Natriuretic Pep. 69.9 pg/mL (0-125)
[2022-09-11 09:45] LABS: Troponin I < 0.01 ng/ml (0.00-0.034)
--- NOTE | 2022-09-11 09:49 | PC.NURSE ---
pt to CT via WC with audit tech
--- NOTE | 2022-09-11 10:30 | PC.NURSE ---
Rounded on patient, pt is resting on ED stretcher and has no needs at this time. Call light within reach
--- NOTE | 2022-09-11 11:28 | PC.NURSE ---
WESLEY AL at for update on POC
--- NOTE | 2022-09-11 11:46 | PC.NURSE ---
pt given another warm blanket and given a pillow by ROB Kim. pt aware that we are waiting on 2nd troponin at this time. Family at BS
--- NOTE | 2022-09-11 12:28 | PC.NURSE ---
owen called to get pt a lunch tray
[2022-09-11 12:40] LABS: Troponin I < 0.01 ng/ml (0.00-0.034)
--- NOTE | 2022-09-11 12:45 | PC.NURSE ---
called cadio for consult no one answered, called sybase developer to get cadio for consult on the phone
== END 2022-09-11 13:25 | disposition home or self-care (01) ==
PROVIDERS: Emergency Provider Emergency Medicine; PCP Emergency Medicine
DX: R06.02 Shortness of breath (principal); R55 Syncope and collapse; F17.210 Nicotine dependence, cigarettes, uncomplicated; J45.909 Unspecified asthma, uncomplicated; J44.9 Chronic obstructive pulmonary disease, unspecified; I10 Essential (primary) hypertension; F41.9 Anxiety disorder, unspecified; Z90.49 Acquired absence of other specified parts of digestive tract; Z82.5 Family history of asthma and other chronic lower respiratory diseases; Z80.3 Family history of malignant neoplasm of breast; Z80.49 Family history of malignant neoplasm of other genital organs; Z83.6 Family history of other diseases of the respiratory system; Z20.822 Contact with and (suspected) exposure to COVID-19
CPT/HCPCS: 71046; 71275; 80048; 80076; 83880; 84484; 85025; 85378; 93005; 96360; 99285; C9803; Q9967; U0003; U0005

== ENCOUNTER → 2022-10-30 14:17 | Outpatient (CLI) | payer OTHER, SELFPAY ==
[2022-10-30 15:51] LABS: C-Reactive Protein 10.9 mg/L (0-4)
[2022-10-30 19:00] LABS: Basophils # 0.1 K/mm3 (0-0.2); Eosinophils # 0.3 K/mm3 (0.0-0.4); Hematocrit 42.1 % (42.0-52.0); Hemoglobin 13.8 g/dL (14.1-18.0); Lymphocytes # 3.4 K/mm3 (0.7-4.5); Lymphocytes % 29.4 % (10-50); Mean Corpuscular HGB Conc 32.7 g/dL (31.8-35.4); Mean Corpuscular Hemoglobin 29.6 pg (27.0-31.2); Mean Corpuscular Volume 90.5 fl (80-94); Mean Platelet Volume 8.5 fl (7.4-10.4); Monocytes # 0.7 K/mm3 (0.1-1.0); Monocytes % 5.7 % (1.7-9.3); Platelet Count 457 K/mm3 (142-424); Red Blood Count 4.65 M/mm3 (4.60-6.20); Red Cell Distribution Width 13.5 % (11.5-17.5); White Blood Count 11.5 K/mm3 (4.8-10.8)
[2022-11-01 08:15] LABS: Alpha-1-Antitrypsin 162 mg/dL (101-187)
[2022-11-04 18:08] LABS: D001-IgE D pteronyssinus <0.10 kU/L (Class 0); D002-IgE D farinae <0.10 kU/L (Class 0); E001-IgE Cat Dander <0.10 kU/L (Class 0); E005-IgE Dog Dander <0.10 kU/L (Class 0); E072-IgE Mouse Urine <0.10 kU/L (Class 0); G002-IgE Bermuda Grass <0.10 kU/L (Class 0); G006-IgE Timothy Grass <0.10 kU/L (Class 0); I006-IgE Cockroach, German <0.10 kU/L (Class 0); Immunoglobulin E, Total 262 IU/mL (6-495); M001-IgE Penicillium chrysogen <0.10 kU/L (Class 0); M002-IgE Cladosporium herbarum <0.10 kU/L (Class 0); M003-IgE Aspergillus fumigatus <0.10 kU/L (Class 0); M006-IgE Alternaria alternata <0.10 kU/L (Class 0); T001-IgE Maple/Box Elder <0.10 kU/L (Class 0); T003-IgE Common Silver Birch <0.10 kU/L (Class 0); T006-IgE Cedar, Mountain <0.10 kU/L (Class 0); T007-IgE Oak, White <0.10 kU/L (Class 0); T008-IgE Elm, American <0.10 kU/L (Class 0); T010-IgE Walnut <0.10 kU/L (Class 0); T011-IgE Maple Leaf Sycamore <0.10 kU/L (Class 0); T014-IgE Cottonwood <0.10 kU/L (Class 0); T015-IgE Ash, White <0.10 kU/L (Class 0); T022-IgE Pecan, Hickory <0.10 kU/L (Class 0); T070-IgE White Mulberry <0.10 kU/L (Class 0); W001-IgE Ragweed, Short <0.10 kU/L (Class 0); W011-IgE Thistle, Russian <0.10 kU/L (Class 0); W014-IgE Pigweed, Common <0.10 kU/L (Class 0); W018-IgE Sheep Sorrel <0.10 kU/L (Class 0)
[2022-11-05 17:20] LABS: Strongyloides IgG Antibody Negative (Negative)
[2022-11-14 03:16] LABS: Aspergillus fumigatus IgG NEGATIVE
[2022-11-14 03:17] LABS: Pigeon Serum Abs NEGATIVE
== END ==
PROVIDERS: PCP Emergency Medicine; Visit Provider Internal Medicine Pulmonary Disease
DX: R06.09 Other forms of dyspnea (principal); J44.9 Chronic obstructive pulmonary disease, unspecified; J30.9 Allergic rhinitis, unspecified; J84.9 Interstitial pulmonary disease, unspecified; J45.909 Unspecified asthma, uncomplicated
CPT/HCPCS: 36415; 82103; 82785; 85025; 86003; 86140; 86331; 86602; 86606; 86609; 86682

== ENCOUNTER 2022-11-13 20:24 | Emergency (ER) | payer OTHER, SELFPAY ==
[2022-11-13 20:26] VITALS: BP 150/87; PULSE 73; RESP 20; TEMP 36.8; O2SAT 96; BMI 29.8
[2022-11-13 20:44] VITALS: BMI 29.8
[2022-11-13 20:52] LABS: Microscopic, Urine URINE MICROSCOPIC (MICROSCOPIC)
[2022-11-13 20:54] LABS: Appearance,Urine CLEAR (Clear); Bilirubin,Urine Negative (Negative); Blood, Urine 1+ (Negative); Color,Urine YELLOW (Yellow); Glucose,Urine (UA) Negative (Negative); Ketones,Urine Negative (Negative); Leukocyte Esterase,Urine Negative (Negative); Nitrate,Urine Negative (Negative); Protein,Urine Negative (Negative); Specific Gravity, Urine 1.025 (1.005-1.030); Urobilinogen,Urine 0.2 EU/dl (0.2)
--- NOTE | 2022-11-13 20:58 | CT_ITS ---
PROCEDURE INFORMATION: Exam: CT Abdomen And Pelvis Without Contrast Exam date and time: 11/13/2022 9:18 PM Age: 46 years old Clinical indication: Abdominal pain; Flank; Right; Additional info: R flank pain, with nausea microhematuria TECHNIQUE: Imaging protocol: Computed tomography of the abdomen and pelvis without contrast. Radiation optimization: All CT scans at this facility use at least one of these dose optimization techniques: automated exposure control; mA and/or kV adjustment per patient size (includes targeted exams where dose is matched to clinical indication); or iterative reconstruction. REPORTING DATA: Count of CT and Cardiac NM exams in prior 12 months: This patient has received [address] and 0 known cardiac nuclear medicine studies in the 12 months prior to the current study. COMPARISON: CT ABDOMEN PELVIS WO CON 09/13/2020 10:30 AM FINDINGS: Liver: Normal. No mass. Gallbladder and bile ducts: Gallbladder surgically absent. Pancreas: Normal. No ductal dilation. Spleen: Normal. No splenomegaly. Splenic granulomata. Adrenal glands: Normal. No mass. Kidneys and ureters: Normal. No hydronephrosis. Stomach and bowel: Unremarkable. No obstruction. No mucosal thickening. Appendix: No evidence of appendicitis. Intraperitoneal space: Unremarkable. No free air. No significant fluid collection. Vasculature: Unremarkable. No abdominal aortic aneurysm. Lymph nodes: Unremarkable. No enlarged lymph nodes. Urinary bladder: Unremarkable as visualized. Reproductive: Unremarkable as visualized. Bones/joints: Unremarkable. No acute fracture. Soft tissues: Unremarkable. IMPRESSION: Unremarkable study. No nephroureterolithiasis or hydroureter identified.
[2022-11-13 21:00] VITALS: BP 150/97; PULSE 70; O2SAT 94
--- NOTE | 2022-11-13 21:17 | PC.NURSE ---
patient in CT at this time.
[2022-11-13 21:23] LABS: Squamous Epithelial Cell,Urine Occasional #/hpf (0-5)
--- NOTE | 2022-11-13 21:24 | PC.NURSE ---
Rounded on patient, patient voiced no concerns at this time.
[2022-11-13 21:44] VITALS: BP 126/88; O2SAT 100
[2022-11-13 22:00] VITALS: BP 122/89; PULSE 62; O2SAT 93
[2022-11-13 22:00] LABS: Basophils # 0.1 K/mm3 (0-0.2); Basophils % 1.1 % (0.1-2.0); Eosinophils # 0.4 K/mm3 (0.0-0.4); Eosinophils % 5.2 % (0.1-12.0); Hematocrit 38.6 % (42.0-52.0); Hemoglobin 12.7 g/dL (14.1-18.0); Lymphocytes # 2.3 K/mm3 (0.7-4.5); Lymphocytes % 29.9 % (10-50); Mean Corpuscular HGB Conc 32.9 g/dL (31.8-35.4); Mean Corpuscular Hemoglobin 30.2 pg (27.0-31.2); Mean Corpuscular Volume 91.8 fl (80-94); Mean Platelet Volume 7.3 fl (7.4-10.4); Monocytes # 0.5 K/mm3 (0.1-1.0); Monocytes % 6.4 % (1.7-9.3); Neutrophils # 4.4 K/mm3 (1.8-7.8); Neutrophils % 57.4 % (37.0-80.0); Platelet Count 338 K/mm3 (142-424); Red Blood Count 4.21 M/mm3 (4.60-6.20); Red Cell Distribution Width 13.4 % (11.5-17.5); White Blood Count 7.7 K/mm3 (4.8-10.8)
[2022-11-13 22:01] LABS: Alanine Aminotransferase 21 U/L (12-78); Albumin Level 4.3 g/dl (3.5-5.0); Albumin/Globulin Ratio 1.4 (1.1-1.8); Alkaline Phosphatase 99 U/L (38-126); Amylase 71 U/L (30-110); Anion Gap 8.3 mEq/L (5-15); Aspartate Amino Transferase 29 U/L (17-59); Bilirubin,Total 0.3 mg/dl (0.2-1.3); Blood Urea Nitrogen 10 mg/dl (9-20); Calcium 8.3 mg/dl (8.4-10.2); Carbon Dioxide 29 mmol/L (22.0-30.0); Chloride 104 mmol/L (98-107); Creatinine Clearance Estimated 184 mL/min (50-200); Estimated Glomerular Filt Rate 121 ml/min (>60); GFR (African American) 146 ML/MIN (>60); Globulin 3.1 g/dL (1.3-3.2); Glucose 91 mg/dl (74-100); Lipase 57 U/L (23-300); Potassium 4.3 mmoL/L (3.5-5.1); Sodium 137 mmol/L (136-145); Total Protein,Serum 7.4 g/dl (6.3-8.2)
--- NOTE | 2022-11-13 22:20 | HMH.EDGENADL ---
Discharge Plan Disposition Patient Disposition: Home, Self-Care Prescriptions Prescriptions: New ketorolac 10 mg tablet 10 mg PO Q6H PRN (Reason: pain) 3 Days Qty: 10 0RF No Action buprenorphine-naloxone 8-2 mg tablet, sublingual 1 tab SL DAILY Ubrelvy 100 mg tablet 100 mg PO ONCE PRN (Reason: migraine prevention) Qty: 10 5RF Rx Instructions: Take 100 mg by mouth at onset of headache. May repeat 100 mg after 2 hours if symptoms persist. Max dose 200 mg or 2 tablets in 24 hours. propranolol 80 mg tablet 80 mg PO BID Qty: 60 2RF bupropion HCl [Wellbutrin SR] 150 mg tablet sustained-release 12 hr 150 mg PO DAILY Qty: 30 2RF ondansetron HCl 4 mg tablet 4 mg PO Q8H PRN (Reason: nausea and vomiting) Qty: 30 1RF albuterol sulfate 90 mcg/actuation HFA aerosol inhaler 2 inh inhalation Q6H PRN (Reason: shortness of breath or wheezing) 90 Days Qty: 8.5 2RF Dulera 200-5 mcg/actuation HFA aerosol inhaler 2 puff inhalation BID 90 Days Qty: 13 2RF Sudafed 24 Hour 240 mg tablet extended release 24 hr 240 mg PO DAILY PRN (Reason: nasal congestion) Qty: 10 0RF ipratropium-albuterol 0.5 mg-3 mg(2.5 mg base)/3 mL solution for nebulization 3 ml inhalation QID PRN (Reason: shortness of breath) Qty: 180 0RF Spiriva Respimat 2.5 mcg/actuation mist 2 inh inhalation DAILY 90 Days Qty: 4 3RF Referrals Follow up/Referrals: Gus Potts MD [Primary Care Provider] - See instructions Clinical Impressions Clinical Impression: Acute right flank pain Instructions Patient Instructions: DI for Flank Pain Discharge ED Provider: Delroy (ED)Gus General Adult HPI General Chief complaint: PAIN Stated complaint: Pain R side Time Seen by Provider: 11/13/22 22:00 Mode of Arrival: Family Vehicle Source of Information: Patient, Spouse and Medical Record Limitations: No Limitations Description of Symptoms (Recalled from ER Triage Doc. by RN): Pt c/o R flank pain that began Saturday morning (11/10). States it has been intermittently severe, but tonight it has been more prominent. Denies any urinary isssues or difficulty voiding. Denies any hx of kidney stones. He also c/o nausea without vomiting or diarrhea. Denies any chest pain or SOA. History of Present Illness HPI narrative: rt flank pain rt upper abd over the last few days - no trauma/fever or rash - Onset (ago): day(s) Location: abdomen and right Severity: moderate Associated symptoms: denies other symptoms Related Data Home Medications Medication Instructions Recorded Confirmed buprenorphine 8 mg-naloxone 2 mg 1 tab sublingual DAILY 03/13/22 11/08/22 sublingual tablet Previous Rx's Medication Instructions Recorded ubrogepant 100 mg tablet (Ubrelvy) 100 mg PO ONCE PRN migraine 03/13/22 prevention #10 tabs propranolol 80 mg tablet 80 mg PO BID headache prevention, 04/05/22 anxiety #60 tabs bupropion HCl 150 mg tablet,12 hr 150 mg PO DAILY #30 ea 05/09/22 sustained-release (Wellbutrin SR) ondansetron HCl 4 mg tablet 4 mg PO Q8H PRN nausea and 10/08/22 vomiting #30 tabs albuterol sulfate 90 mcg/actuation 2 inh inhalation Q6H PRN shortness 10/18/22 aerosol inhaler of breath or wheezing 90 days #8.5 grams mometasone-formoterol HFA 200 2 puff inhalation BID 90 days #13 10/18/22 mcg-5 mcg/actuation aerosol grams inhaler (Dulera) pseudoephedrine HCl 240 mg 240 mg PO DAILY PRN nasal 10/18/22 tablet,extended release 24 hr congestion #10 tabs (Sudafed 24 Hour) ipratropium 0.5 mg-albuterol 3 mg 3 ml inhalation QID PRN shortness 10/25/22 (2.5 mg base)/3 mL nebulization of breath #180 mL soln tiotropium bromide 2.5 2 inh inhalation DAILY 90 days #4 10/30/22 mcg/actuation mist for inhalation grams (Spiriva Respimat) ketorolac 10 mg tablet 10 mg PO Q6H PRN pain 3 days #10 11/13/22 tabs Allergies Allergy/AdvReac Type Severity Reaction Status Date / Time Sulfa (Sulfonamide Allergy Severe Othe
[2022-11-13 22:30] VITALS: BP 123/88; PULSE 58; O2SAT 93
--- NOTE | 2022-11-13 22:30 | XR_ITS ---
PROCEDURE INFORMATION: Exam: XR Chest Exam date and time: 11/13/2022 10:28 PM Age: 46 years old Clinical indication: Pain; Right-sided; Additional info: R flank/side TECHNIQUE: Imaging protocol: Radiologic exam of the chest. Views: 2 views. COMPARISON: CR XR CHEST 2V 09/11/2022 9:01 AM FINDINGS: Lungs: Unremarkable. No consolidation. Pleural spaces: Unremarkable. No pleural effusion. No pneumothorax. Heart/Mediastinum: Unremarkable. No cardiomegaly. Bones/joints: Unremarkable. IMPRESSION: No acute findings.
--- NOTE | 2022-11-13 22:33 | PC.NURSE ---
radiology notified for cxr
[2022-11-13 23:04] VITALS: BP 116/63; PULSE 67; RESP 17; TEMP 36.8; O2SAT 94
== END 2022-11-13 23:10 | disposition home or self-care (01) ==
PROVIDERS: Emergency Provider Emergency Medicine; PCP Emergency Medicine
DX: R10.11 Right upper quadrant pain (principal); R11.0 Nausea
CPT/HCPCS: 71046; 74176; 80053; 81001; 82150; 83690; 85025; 96360; 96374; 96375; 99284; 99285; J0131; J2405

== ENCOUNTER 2022-11-27 07:21 | Emergency (ER) | payer OTHER, SELFPAY ==
[2022-11-27] VITALS (7 sets, daily range): BP systolic 106–161; BP diastolic 62–94; PULSE 52–70; RESP 12–20; TEMP 36.8; O2SAT 95–98; BMI 29.8
--- NOTE | 2022-11-27 07:21 | ECG_ITS ---
APPROVED REPORT Exam: Resting ECG HR:66 bpm ECG Measurements Heart Rate 66 AXES OK 200 P 56 QRSd 81 QRS 70 QT 391 T 59 QTc 405 Conclusion SINUS RHYTHM NORMAL ECG UNCONFIRMED REPORT Electronically signed by : Jace Leon MD 11/30/2022 14:34:35
--- NOTE | 2022-11-27 07:32 | XR_ITS ---
FINAL REPORT CLINICAL HISTORY: PRECORDIAL CHEST PAIN, smoker COMPARISON: 11/13/2022 FINDINGS: A single portable view of the chest was obtained. The heart size and pulmonary vascularity are within normal limits. The mediastinum is within normal limits. No acute pulmonary abnormality is identified. The bony thorax is intact. IMPRESSION: No active cardiopulmonary disease. Reviewed, Interpreted and Dictated by Chester Dejesus III, MD Transcribed by Sydney Hutchinson Authenticated and [facility]
--- NOTE | 2022-11-27 07:37 | PC.NURSE ---
WESLEY AL at
[2022-11-27 07:39] LABS: Basophils # 0.1 K/mm3 (0-0.2); Basophils % 0.9 % (0.1-2.0); Eosinophils # 0.3 K/mm3 (0.0-0.4); Eosinophils % 3.7 % (0.1-12.0); Hematocrit 37.9 % (42.0-52.0); Hemoglobin 12.5 g/dL (14.1-18.0); Lymphocytes # 1.6 K/mm3 (0.7-4.5); Lymphocytes % 22.5 % (10-50); Mean Corpuscular Hemoglobin 29.6 pg (27.0-31.2); Mean Corpuscular Volume 89.8 fl (80-94); Mean Platelet Volume 7.4 fl (7.4-10.4); Monocytes # 0.5 K/mm3 (0.1-1.0); Monocytes % 6.9 % (1.7-9.3); Neutrophils # 4.7 K/mm3 (1.8-7.8); Platelet Count 342 K/mm3 (142-424); Red Blood Count 4.22 M/mm3 (4.60-6.20); Red Cell Distribution Width 13.3 % (11.5-17.5); White Blood Count 7.1 K/mm3 (4.8-10.8)
[2022-11-27 07:40] LABS: Chloride 105 mmol/L (98-107); Potassium 4.3 mmoL/L (3.5-5.1); Sodium 141 mmol/L (136-145)
[2022-11-27 07:43] LABS: Anion Gap 10.3 mEq/L (5-15); Blood Urea Nitrogen 12 mg/dl (9-20); Calcium 8.5 mg/dl (8.4-10.2); Carbon Dioxide 30 mmol/L (22.0-30.0); Creatinine Clearance Estimated 159 mL/min (50-200); Estimated Glomerular Filt Rate 103 ml/min (>60); GFR (African American) 125 ML/MIN (>60); Glucose 115 mg/dl (74-100)
--- NOTE | 2022-11-27 07:48 | PC.NURSE ---
XR AT BEDSIDE
--- NOTE | 2022-11-27 07:56 | HMH.EDCP ---
Discharge Plan Disposition Patient Disposition: Home, Self-Care Prescriptions Prescriptions: No Action buprenorphine-naloxone 8-2 mg tablet, sublingual 1 tab SL DAILY Ubrelvy 100 mg tablet 100 mg PO ONCE PRN (Reason: migraine prevention) Qty: 10 5RF Rx Instructions: Take 100 mg by mouth at onset of headache. May repeat 100 mg after 2 hours if symptoms persist. Max dose 200 mg or 2 tablets in 24 hours. propranolol 80 mg tablet 80 mg PO BID Qty: 60 2RF bupropion HCl [Wellbutrin SR] 150 mg tablet sustained-release 12 hr 150 mg PO DAILY Qty: 30 2RF ondansetron HCl 4 mg tablet 4 mg PO Q8H PRN (Reason: nausea and vomiting) Qty: 30 1RF albuterol sulfate 90 mcg/actuation HFA aerosol inhaler 2 inh inhalation Q6H PRN (Reason: shortness of breath or wheezing) 90 Days Qty: 8.5 2RF Dulera 200-5 mcg/actuation HFA aerosol inhaler 2 puff inhalation BID 90 Days Qty: 13 2RF Sudafed 24 Hour 240 mg tablet extended release 24 hr 240 mg PO DAILY PRN (Reason: nasal congestion) Qty: 10 0RF ipratropium-albuterol 0.5 mg-3 mg(2.5 mg base)/3 mL solution for nebulization 3 ml inhalation QID PRN (Reason: shortness of breath) Qty: 180 0RF Spiriva Respimat 2.5 mcg/actuation mist 2 inh inhalation DAILY 90 Days Qty: 4 3RF ketorolac 10 mg tablet 10 mg PO Q6H PRN (Reason: pain) 3 Days Qty: 10 0RF Referrals Follow up/Referrals: Gus Potts MD [Primary Care Provider] - See instructions Arik Barrientos MD [Staff Physician] - See instructions Clinical Impressions Clinical Impression: Chest pain, COPD (chronic obstructive pulmonary disease) Instructions Patient Instructions: DI for Chest Pain Discharge ED Provider: Delroy (ED)Gus Chest Pain HPI General Chief Complaint: Chest Pain Stated Complaint: chest pain Time Seen by Provider: 11/27/22 07:25 Mode of Arrival: Ambulatory Source of Information: Patient, Relative and Medical Record Limitations: No Limitations Description of Symptoms (Recalled from ER Triage Doc. by RN): PT C/O LEFT SIDED CHEST PAIN THAT STARTED YESTERDAY, WORSE WITH COUGH. C/O HEADACHE AND VOMITING THIS AM History of Present Illness HPI narrative: new onset of pressure chest pain w/o radiation progressive since yesterday - has hx of tob use and fh of ht dis - MD complaint: chest pain indicative of cardiac Onset (ago): day(s) Duration: intermittent Activity at onset: during rest Pain location: left chest Severity: moderate Quality: tightness Pain radiation: none Associated symptoms: diaphoresis Risk Factors for CAD: Family Hx of CAD and Smoking Treatments prior to or on arrival for Cardiac Chest Pain: none ERNESTO Score for Non-Stemi Age of Patient: 40-49 years old Heart Rate: 70-89 bpm Systolic Blood Pressure: 120-139 mmhg Serum Creatinine: 0.80-1.19 mg/dl CHF [place] Class: I-No CHF Other Risk Factors: None Non-Stemi Risk Score: 75 Risk Stratification: 1-108 = Low Risk Related Data Home Medications Medication Instructions Recorded Confirmed buprenorphine 8 mg-naloxone 2 mg 1 tab sublingual DAILY 03/13/22 11/08/22 sublingual tablet Previous Rx's Medication Instructions Recorded ubrogepant 100 mg tablet (Ubrelvy) 100 mg PO ONCE PRN migraine 03/13/22 prevention #10 tabs propranolol 80 mg tablet 80 mg PO BID headache prevention, 04/05/22 anxiety #60 tabs bupropion HCl 150 mg tablet,12 hr 150 mg PO DAILY #30 ea 05/09/22 sustained-release (Wellbutrin SR) ondansetron HCl 4 mg tablet 4 mg PO Q8H PRN nausea and 10/08/22 vomiting #30 tabs albuterol sulfate 90 mcg/actuation 2 inh inhalation Q6H PRN shortness 10/18/22 aerosol inhaler of breath or wheezing 90 days #8.5 grams mometasone-formoterol HFA 200 2 puff inhalation BID 90 days #13 10/18/22 mcg-5 mcg/actuation aerosol grams inhaler (Dulera) pseudoephedrine HCl 240 mg 240 mg PO DAILY PRN nasal 10/18/22 tablet,extended release 24 hr congestion #10 tabs (Sudafed 24 Hour) iprat
--- NOTE | 2022-11-27 07:57 | PC.NURSE ---
PT REPORTS CHEST PAIN 11/19, MD NOTIFIED REPEAT NITRO GIVEN. B/P 157/101
[2022-11-27 07:58] LABS: Troponin I < 0.01 ng/ml (0.00-0.034)
--- NOTE | 2022-11-27 08:07 | PC.NURSE ---
DR PACK AT BEDSIDE TO REEVALUATE PT
--- NOTE | 2022-11-27 08:14 | PC.NURSE ---
DR PACK SPEAKING WITH SERGIO CISNEROS WITH CARDIOLOGY
[2022-11-27 08:40] LABS: Chol/HDL Ratio 7.8 (1-3.5); Cholesterol 227 mg/dl (140-200); HDL Cholesterol 29 mg/dl (40-60); Triglycerides 108 mg/dl (30-150); VLDL Cholesterol 22 mg/dL (0-40)
--- NOTE | 2022-11-27 08:42 | PC.NURSE ---
ROUNDED ON PT, ICE WATER AND TV REMOTE PROVIDED. NO FURTHER NEEDS AT THIS TIME. CALL LIGHT WITHIN REACH
--- NOTE | 2022-11-27 08:50 | PC.NURSE ---
Dr. Potts verbal orders for pt at time of d/c Inderal 40 mg po one time dose Imdur 30 mg po one time dose
[2022-11-27 08:51] LABS: Direct LDL Cholesterol 143.41 mg/dL (100-129)
[2022-11-27 09:11] LABS: Hemoglobin A1C 5.3 % (4.0-6.0)
--- NOTE | 2022-11-27 10:09 | PC.NURSE ---
REPEAT TROP SENT TO LAB
[2022-11-27 10:36] LABS: Troponin I < 0.01 ng/ml (0.00-0.034)
== END 2022-11-27 11:18 | disposition home or self-care (01) ==
PROVIDERS: Emergency Provider Emergency Medicine; PCP Emergency Medicine
DX: F17.210 Nicotine dependence, cigarettes, uncomplicated (principal); R07.9 Chest pain, unspecified; J44.9 Chronic obstructive pulmonary disease, unspecified
CPT/HCPCS: 71045; 80048; 80061; 83036; 84484; 85025; 93005; 99285

== ENCOUNTER 2022-11-27 19:56 | Emergency (ER) | payer OTHER, SELFPAY ==
[2022-11-27] VITALS (7 sets, daily range): BP systolic 120–162; BP diastolic 69–92; PULSE 51–59; RESP 12–17; TEMP 36.7; O2SAT 92–97; BMI 34.9
--- NOTE | 2022-11-27 20:04 | ECG_ITS ---
APPROVED REPORT Exam: Resting ECG HR:56 bpm ECG Measurements Heart Rate 56 AXES WI 199 P 39 QRSd 84 QRS 57 QT 420 T 44 QTc 411 Conclusion SINUS BRADYCARDIA WITH SINUS ARRHYTHMIA BORDERLINE ECG INTERPRETATION BASED ON A DEFAULT AGE OF 39 YEARS UNCONFIRMED REPORT Electronically signed by : Jace Leon MD 11/30/2022 14:31:40
--- NOTE | 2022-11-27 20:24 | XR_ITS ---
PROCEDURE INFORMATION: Exam: XR Chest Exam date and time: 11/27/2022 9:00 PM Age: 47 years old Clinical indication: Pain; Other: Chest discomfort TECHNIQUE: Imaging protocol: Radiologic exam of the chest. Views: 1 view. COMPARISON: CR XR CHEST PORTABLE 11/27/2022 8:02 AM FINDINGS: Lungs: Unremarkable. No consolidation. Pleural spaces: Unremarkable. No pleural effusion. No pneumothorax. Heart/Mediastinum: Unremarkable. No cardiomegaly. Bones/joints: Unremarkable. IMPRESSION: No acute findings.
--- NOTE | 2022-11-27 20:24 | CT_ITS ---
PROCEDURE INFORMATION: Exam: CT Head Without Contrast Exam date and time: 11/27/2022 8:51 PM Age: 47 years old Clinical indication: Pain; Headache; Additional info: Headache without relief TECHNIQUE: Imaging protocol: Computed tomography of the head without contrast. Radiation optimization: All CT scans at this facility use at least one of these dose optimization techniques: automated exposure control; mA and/or kV adjustment per patient size (includes targeted exams where dose is matched to clinical indication); or iterative reconstruction. REPORTING DATA: Count of CT and Cardiac NM exams in prior 12 months: This patient has received 2 known [address]s and 0 known cardiac nuclear medicine studies in the 12 months prior to the current study. COMPARISON: MR HEAD/BRAIN WO CON 03/30/2022 1:14 PM FINDINGS: Brain: Normal. No hemorrhage. Unremarkable white matter. No mass effect. Cerebral ventricles: No ventriculomegaly. Paranasal sinuses: Visualized sinuses are unremarkable. No fluid levels. Mastoid air cells: Visualized mastoid air cells are well aerated. Bones/joints: Unremarkable. No acute fracture. Soft tissues: Unremarkable. IMPRESSION: No acute intracranial abnormality.
[2022-11-27 20:32] LABS: Basophils # 0.1 K/mm3 (0-0.2); Basophils % 0.4 % (0.1-2.0); Eosinophils # 0.4 K/mm3 (0.0-0.4); Eosinophils % 2.7 % (0.1-12.0); Hematocrit 39.6 % (42.0-52.0); Hemoglobin 13.3 g/dL (14.1-18.0); Lymphocytes # 1.5 K/mm3 (0.7-4.5); Lymphocytes % 10.4 % (10-50); Mean Corpuscular HGB Conc 33.7 g/dL (31.8-35.4); Mean Corpuscular Hemoglobin 29.9 pg (27.0-31.2); Mean Corpuscular Volume 88.8 fl (80-94); Mean Platelet Volume 8.2 fl (7.4-10.4); Monocytes # 0.4 K/mm3 (0.1-1.0); Monocytes % 3.2 % (1.7-9.3); Neutrophils # 11.7 K/mm3 (1.8-7.8); Neutrophils % 83.4 % (37.0-80.0); Platelet Count 417 K/mm3 (142-424); Red Blood Count 4.46 M/mm3 (4.60-6.20); Red Cell Distribution Width 13.2 % (11.5-17.5); White Blood Count 14.1 K/mm3 (4.8-10.8)
[2022-11-27 20:36] LABS: Alanine Aminotransferase 21 U/L (12-78); Albumin Level 4.4 g/dl (3.5-5.0); Albumin/Globulin Ratio 1.3 (1.1-1.8); Alkaline Phosphatase 95 U/L (38-126); Anion Gap 9.7 mEq/L (5-15); Aspartate Amino Transferase 32 U/L (17-59); Bilirubin,Total 0.7 mg/dl (0.2-1.3); Blood Urea Nitrogen 11 mg/dl (9-20); Calcium 8.6 mg/dl (8.4-10.2); Carbon Dioxide 27 mmol/L (22.0-30.0); Chloride 105 mmol/L (98-107); Creatinine Clearance Estimated 219 mL/min (50-200); Estimated Glomerular Filt Rate 120 ml/min (>60); GFR (African American) 146 ML/MIN (>60); Globulin 3.4 g/dL (1.3-3.2); Glucose 104 mg/dl (74-100); Potassium 4.7 mmoL/L (3.5-5.1); Sodium 137 mmol/L (136-145); Total Protein,Serum 7.8 g/dl (6.3-8.2)
[2022-11-27 20:41] LABS: C-Reactive Protein 5.5 mg/L (0-4)
[2022-11-27 21:06] LABS: Erythrocyte Sedimentation Rate 40 mm/hr (0-15)
[2022-11-27 21:26] LABS: Coronavirus 19, PCR Not Detected (NotDetected); Influenza A, PCR Not Detected (NotDetected); Influenza B, PCR Not Detected (NotDetected)
--- NOTE | 2022-11-27 21:28 | PC.NURSE ---
COVID swab obtained and sent to lab
--- NOTE | 2022-11-27 22:38 | PC.NURSE ---
rounded on patient, patient and spouse are both sleeping at this time did not wake patient. Checked and call light within reach
[2022-11-28] VITALS: BP 127/70; RESP 14
[2022-11-28 00:31] VITALS: BP 131/67; RESP 13
--- NOTE | 2022-11-28 00:40 | HMH.EDHA ---
Discharge Plan Disposition Patient Disposition: Home, Self-Care Chief Complaint: Headache Prescriptions Prescriptions: No Action buprenorphine-naloxone 8-2 mg tablet, sublingual 1 tab SL DAILY Ubrelvy 100 mg tablet 100 mg PO ONCE PRN (Reason: migraine prevention) Qty: 10 5RF Rx Instructions: Take 100 mg by mouth at onset of headache. May repeat 100 mg after 2 hours if symptoms persist. Max dose 200 mg or 2 tablets in 24 hours. propranolol 80 mg tablet 80 mg PO BID Qty: 60 2RF bupropion HCl [Wellbutrin SR] 150 mg tablet sustained-release 12 hr 150 mg PO DAILY Qty: 30 2RF ondansetron HCl 4 mg tablet 4 mg PO Q8H PRN (Reason: nausea and vomiting) Qty: 30 1RF albuterol sulfate 90 mcg/actuation HFA aerosol inhaler 2 inh inhalation Q6H PRN (Reason: shortness of breath or wheezing) 90 Days Qty: 8.5 2RF Dulera 200-5 mcg/actuation HFA aerosol inhaler 2 puff inhalation BID 90 Days Qty: 13 2RF Sudafed 24 Hour 240 mg tablet extended release 24 hr 240 mg PO DAILY PRN (Reason: nasal congestion) Qty: 10 0RF ipratropium-albuterol 0.5 mg-3 mg(2.5 mg base)/3 mL solution for nebulization 3 ml inhalation QID PRN (Reason: shortness of breath) Qty: 180 0RF Spiriva Respimat 2.5 mcg/actuation mist 2 inh inhalation DAILY 90 Days Qty: 4 3RF ketorolac 10 mg tablet 10 mg PO Q6H PRN (Reason: pain) 3 Days Qty: 10 0RF Referrals Follow up/Referrals: Gus Potts MD [Primary Care Provider] - See instructions Clinical Impressions Clinical Impression: Headache, Chest pain Instructions Patient Instructions: DI for Headache Discharge ED Provider: Delroy (ED)Gus Headache HPI General Chief Complaint: Headache Stated Complaint: seen this AM in ER, THOMAS, Vomiting Time Seen by Provider: 11/28/22 00:40 Mode of Arrival: Family Vehicle Source of Information: Patient, Spouse and Medical Record Limitations: No Limitations Description of Symptoms (Recalled from ER Triage Doc. by RN): patient 47 yo presents with cc of headache following administration of nitro sl this morning in the ed that is still unresolved following two doses for chest pain. patient is a&ox4, n/v multiple times and is concerned and would like evaluated. History of Present Illness HPI Narrative: pt was seen earlier for chest pain and has pending gxt and echo but presented with thomas with vomiting since earlier today and has hx of thomas - no fever/rash or trauma - no focal neuro sx - MD Complaint: headache Onset (ago): hour(s) Onset description: gradual Location: diffuse Severity: moderate Quality: similar to previous headaches Associated symptoms: nausea and vomiting Treatments prior to arrival: none Related Data Home Medications Medication Instructions Recorded Confirmed buprenorphine 8 mg-naloxone 2 mg 1 tab sublingual DAILY 03/13/22 11/08/22 sublingual tablet Previous Rx's Medication Instructions Recorded ubrogepant 100 mg tablet (Ubrelvy) 100 mg PO ONCE PRN migraine 03/13/22 prevention #10 tabs propranolol 80 mg tablet 80 mg PO BID headache prevention, 04/05/22 anxiety #60 tabs bupropion HCl 150 mg tablet,12 hr 150 mg PO DAILY #30 ea 05/09/22 sustained-release (Wellbutrin SR) ondansetron HCl 4 mg tablet 4 mg PO Q8H PRN nausea and 10/08/22 vomiting #30 tabs albuterol sulfate 90 mcg/actuation 2 inh inhalation Q6H PRN shortness 10/18/22 aerosol inhaler of breath or wheezing 90 days #8.5 grams mometasone-formoterol HFA 200 2 puff inhalation BID 90 days #13 10/18/22 mcg-5 mcg/actuation aerosol grams inhaler (Dulera) pseudoephedrine HCl 240 mg 240 mg PO DAILY PRN nasal 10/18/22 tablet,extended release 24 hr congestion #10 tabs (Sudafed 24 Hour) ipratropium 0.5 mg-albuterol 3 mg 3 ml inhalation QID PRN shortness 10/25/22 (2.5 mg base)/3 mL nebulization of breath #180 mL soln tiotropium bromide 2.5 2 inh inhalation DAILY 90 days #4 10/30/22 mcg/actuation mist for inhalation grams
[2022-11-28 00:58] LABS: Troponin I < 0.01 ng/ml (0.00-0.034)
[2022-11-28 01:15] VITALS: BP 152/79; PULSE 82; RESP 19; TEMP 37.2; O2SAT 98
--- NOTE | 2022-11-28 01:21 | PC.NURSE ---
went to ask patient if he wanted anything else for pain, patient in room yelling at about he hates this fucking place . he apologized to this nurse. requested iv be removed. patient ambulated thad.
== END 2022-11-28 01:25 | disposition home or self-care (01) ==
PROVIDERS: Emergency Provider Emergency Medicine; PCP Emergency Medicine
DX: R07.9 Chest pain, unspecified (principal); R51.9 Headache, unspecified; F17.210 Nicotine dependence, cigarettes, uncomplicated
CPT/HCPCS: 70450; 71045; 80053; 84484; 85025; 85651; 86140; 93005; 96374; 99285; C9803; U0003; U0005

== ENCOUNTER 2023-04-06 19:16 | Emergency (ER) | payer OTHER, SELFPAY ==
[2023-04-06 19:16] VITALS: BP 133/89; PULSE 71; RESP 18; TEMP 36.9; O2SAT 96; BMI 29.8
--- NOTE | 2023-04-06 19:55 | EXP.UTC ---
Discharge Plan Disposition Patient Disposition: Home, Self-Care Condition: Good Prescriptions Prescriptions: New promethazine-DM 6.25-15 mg/5 mL Syrup 5 ml PO Q6H PRN (Reason: Cough) Qty: 180 0RF prednisone [prednisone] 20 mg tablet 20 mg PO BID 5 Days Qty: 10 0RF benzonatate 200 mg capsule 200 mg PO TID PRN (Reason: cough) Qty: 30 0RF No Action buprenorphine-naloxone 8-2 mg tablet, sublingual 1 tab SL DAILY Ubrelvy 100 mg tablet 100 mg PO ONCE PRN (Reason: migraine prevention) Qty: 10 5RF Rx Instructions: Take 100 mg by mouth at onset of headache. May repeat 100 mg after 2 hours if symptoms persist. Max dose 200 mg or 2 tablets in 24 hours. albuterol sulfate 90 mcg/actuation HFA aerosol inhaler 2 inh inhalation Q6H PRN (Reason: shortness of breath or wheezing) 90 Days Qty: 8.5 2RF Dulera 200-5 mcg/actuation HFA aerosol inhaler 2 puff inhalation BID 90 Days Qty: 13 2RF ipratropium-albuterol 0.5 mg-3 mg(2.5 mg base)/3 mL solution for nebulization 3 ml inhalation QID PRN (Reason: shortness of breath) Qty: 180 0RF Spiriva Respimat 2.5 mcg/actuation mist 2 inh inhalation DAILY 90 Days Qty: 4 3RF doxycycline hyclate 100 mg capsule 100 mg PO BID 5 Days Qty: 10 0RF ketorolac 10 mg tablet 10 mg PO Q6H PRN (Reason: pain) 3 Days Qty: 10 0RF Referrals Follow up/Referrals: Gus Potts MD [Primary Care Provider] - See instructions Clinical Impressions Clinical Impression: Exposure to COVID-19 virus Instructions Patient Instructions: DI for COVID-19 (Suspected or Confirmed ) Discharge ED Provider: Melanie Perrin [facility] [place] HPI General Stated complaint: covid exposure Mode of Arrival: Ambulatory Source of Information: Patient Limitations: No Limitations Time Seen by Provider: 04/06/23 19:55 Description of Symptoms (Recalled from Triage Doc. by RN): Complaint of runny nose, cough, dizzy, headache and weak since yesterday. HEENT Symptoms (Recalled from RN notes): Yes Resp Symptoms (Recalled from RN notes): No Skin Symptoms (Recalled from RN notes): No MS Symptoms (Recalled from RN notes): No Functional Status (Recalled from RN notes): wnl History of Present Illness Provider Complaint: Cough, runny nose, headache, weak, dizzy X 3 days. Onset (ago): day(s) (3) Relieving factors: none Exacerbating factors: none Associated symptoms: denies other symptoms Treatments prior to arrival: none Related Data Home Medications Medication Instructions Recorded Confirmed buprenorphine 8 mg-naloxone 2 mg 1 tab sublingual DAILY 03/13/22 11/29/22 sublingual tablet Previous Rx's Medication Instructions Recorded ubrogepant 100 mg tablet (Ubrelvy) 100 mg PO ONCE PRN migraine 03/13/22 prevention #10 tabs albuterol sulfate 90 mcg/actuation 2 inh inhalation Q6H PRN shortness 10/18/22 aerosol inhaler of breath or wheezing 90 days #8.5 grams mometasone-formoterol HFA 200 2 puff inhalation BID 90 days #13 10/18/22 mcg-5 mcg/actuation aerosol grams inhaler (Dulera) ipratropium 0.5 mg-albuterol 3 mg 3 ml inhalation QID PRN shortness 10/25/22 (2.5 mg base)/3 mL nebulization of breath #180 mL soln tiotropium bromide 2.5 2 inh inhalation DAILY 90 days #4 10/30/22 mcg/actuation mist for inhalation grams (Spiriva Respimat) ketorolac 10 mg tablet 10 mg PO Q6H PRN pain 3 days #10 11/13/22 tabs doxycycline hyclate 100 mg capsule 100 mg PO BID 5 days #10 caps 11/29/22 benzonatate 200 mg capsule 200 mg PO TID PRN cough #30 caps 04/06/23 prednisone 20 mg tablet 20 mg PO BID 5 days #10 tabs 04/06/23 promethazine-DM 6.25 mg-15 mg/5 mL 5 ml PO Q6H PRN Cough #180 mL 04/06/23 oral syrup Allergies Allergy/AdvReac Type Severity Reaction Status Date / Time Sulfa (Sulfonamide Allergy Severe Other Verified 11/29/22 15:33 Antibiotics) amoxicillin [AMOXICILLIN] Allergy Unknown Verified 11/29/22 15:33 azithromycin [AZITHROMYCIN] Allergy Unknown Verifie
[2023-04-06 20:01] VITALS: BP 133/89; PULSE 71; RESP 18; TEMP 36.9; O2SAT 96
== END 2023-04-06 20:02 | disposition home or self-care (01) ==
PROVIDERS: Emergency Provider Physician Assistant; PCP Emergency Medicine
DX: R05.9 Cough, unspecified (principal); R51.9 Headache, unspecified; R42 Dizziness and giddiness; R53.1 Weakness; R09.81 Nasal congestion; F17.210 Nicotine dependence, cigarettes, uncomplicated; J44.9 Chronic obstructive pulmonary disease, unspecified; I10 Essential (primary) hypertension; F41.9 Anxiety disorder, unspecified
CPT/HCPCS: 99212; 99214; G0463

== ENCOUNTER 2023-04-09 08:49 | Emergency (ER) | payer OTHER, SELFPAY ==
[2023-04-09 09:00] VITALS: BP 146/98; PULSE 83; RESP 19; TEMP 37.2; O2SAT 98; BMI 32.4
[2023-04-09 09:05] LABS: Adenovirus,PCR Not Detected (NotDetected); Bordetella Pertussis Not Detected (NotDetected); Chlamydophila Pneumoniae, PCR Not Detected (NotDetected); Coronavirus 229E Not Detected (NotDetected); Coronavirus NL63 Not Detected (NotDetected); Coronavirus OC43 Not Detected (NotDetected); Coronovirus HKU1,PCR Not Detected (NotDetected); Human Metapneumovirus Not Detected (NotDetected); Influenza A, PCR Not Detected (NotDetected); Influenza AH1, 2009 Not Detected (NotDetected); Influenza AH1, PCR Not Detected (NotDetected); Influenza AH3,PCR Not Detected (NotDetected); Influenza B, PCR Not Detected (NotDetected); Mycoplasma Pneumoniae, PCR Not Detected (NotDetected); Parainfluenza 1, PCR Not Detected (NotDetected); Parainfluenza 2, PCR Not Detected (NotDetected); Parainfluenza 3, PCR Not Detected (NotDetected); Parainfluenza 4, PCR Not Detected (NotDetected); Respiratory Syncytial Virus Not Detected (NotDetected); Rhinovirus/Enterovirus Not Detected (NotDetected)
--- NOTE | 2023-04-09 09:17 | EXP.UTC ---
Discharge Plan Disposition Patient Disposition: Home, Self-Care Condition: Good Prescriptions Prescriptions: New doxycycline hyclate 100 mg tablet 100 mg PO BID 10 Days Qty: 20 0RF guaifenesin [Mucinex] 600 mg tablet extended release 12hr 1,200 mg PO BID PRN (Reason: cough) Qty: 20 0RF Rx Instructions: During the day for cough albuterol sulfate 90 mcg/actuation HFA aerosol inhaler 2 puff inhalation Q4-6H PRN (Reason: shortness of breath or wheezing) Qty: 8.5 0RF No Action buprenorphine-naloxone 8-2 mg tablet, sublingual 1 tab SL DAILY Ubrelvy 100 mg tablet 100 mg PO ONCE PRN (Reason: migraine prevention) Qty: 10 5RF Rx Instructions: Take 100 mg by mouth at onset of headache. May repeat 100 mg after 2 hours if symptoms persist. Max dose 200 mg or 2 tablets in 24 hours. albuterol sulfate 90 mcg/actuation HFA aerosol inhaler 2 inh inhalation Q6H PRN (Reason: shortness of breath or wheezing) 90 Days Qty: 8.5 2RF Dulera 200-5 mcg/actuation HFA aerosol inhaler 2 puff inhalation BID 90 Days Qty: 13 2RF ipratropium-albuterol 0.5 mg-3 mg(2.5 mg base)/3 mL solution for nebulization 3 ml inhalation QID PRN (Reason: shortness of breath) Qty: 180 0RF Spiriva Respimat 2.5 mcg/actuation mist 2 inh inhalation DAILY 90 Days Qty: 4 3RF doxycycline hyclate 100 mg capsule 100 mg PO BID 5 Days Qty: 10 0RF ketorolac 10 mg tablet 10 mg PO Q6H PRN (Reason: pain) 3 Days Qty: 10 0RF promethazine-DM 6.25-15 mg/5 mL Syrup 5 ml PO Q6H PRN (Reason: Cough) Qty: 180 0RF prednisone [prednisone] 20 mg tablet 20 mg PO BID 5 Days Qty: 10 0RF benzonatate 200 mg capsule 200 mg PO TID PRN (Reason: cough) Qty: 30 0RF Referrals Follow up/Referrals: Gus Potts MD [Primary Care Provider] - See instructions Activity Restrictions/Add. Instructions Additional Instructions/Restrictions: Start antibiotic today. Be sure to complete entire prescription even if feeling better Monitor temp. Tylenol every 4 hours as needed and / or ibuprofen every 6 hours as needed ( As long as your primary care physician has told you that it ok to take both. For fever/aches/pains ER if no less than 101 despite Tylenol or Motrin Humidifier/vaporizer or hot steamy shower Inhaler every 4-6 hours as needed like we discussed. If unsure how to use it, ask pharmacist to demonstrate how. Should help open airways and improve cough, wheezing, and shortness of breath Mucinex during the day for your cough and cough suppressant only at night. Be sure to drink lots of water. *Tessalon Perles will not cause drowsiness but use at bedtime to help stop cough so that you may get some rest. *Start steroid today. Helps with inflammation therefore, cough and wheezing. Follow directions on the package. Reviewed side effects. Patient reports taking them before. Follow up IMMEDIATELY for new or worsening of symptoms OR no noticeable improvement over the next 48-72 hours. 911 immediately for any life threatening symptoms such as chest pain or difficulty breathing Clinical Impressions Clinical Impression: COPD exacerbation Sinusitis Qualifiers: Sinusitis location: unspecified location Chronicity: unspecified Qualified Code(s): J32.9 - Chronic sinusitis, unspecified Instructions Patient Instructions: DI for Sinusitis, Sinusitis, Cough, DI for Nasal Congestion, COPD: When to Call for Help Discharge ED Provider: Marleny Boston [facility] [place] HPI General Stated complaint: SOA weak body aches Mode of Arrival: Ambulatory Source of Information: Patient Limitations: No Limitations Time Seen by Provider: 04/09/23 09:19 Description of Symptoms (Recalled from Triage Doc. by RN): PATIENT C/O BODY ACHES, COUGH, FEVER, AND SOA X 4 DAYS HEENT Symptoms (Recalled from RN notes): No Resp Symptoms (Recalled from RN notes): Yes Skin Symptoms (Recalled from RN notes)
[2023-04-09 09:27] LABS: UTC Influenza A Antigen Negative (Negative); UTC Influenza B Antigen Negative (Negative)
[2023-04-09 09:33] VITALS: BP 146/98; PULSE 83; RESP 19; TEMP 37.2; O2SAT 98
[2023-04-09 10:27] LABS: Coronavirus 19, PCR Detected (NotDetected)
== END 2023-04-09 09:35 | disposition home or self-care (01) ==
PROVIDERS: Emergency Provider Nurse Practitioner; PCP Emergency Medicine
DX: U07.1 COVID-19 (principal); J44.1 Chronic obstructive pulmonary disease with (acute) exacerbation; R06.02 Shortness of breath; D72.19 Other eosinophilia; F17.210 Nicotine dependence, cigarettes, uncomplicated; J30.9 Allergic rhinitis, unspecified; I10 Essential (primary) hypertension; F41.9 Anxiety disorder, unspecified
CPT/HCPCS: 87581; 87632; 87798; 87804; 99212; 99214; G0463

== ENCOUNTER 2023-04-15 15:38 | Emergency (ER) | payer OTHER, SELFPAY ==
--- NOTE | 2023-04-15 16:03 | EXP.UTC ---
Discharge Plan Disposition Patient Disposition: Home, Self-Care Condition: Good Prescriptions Prescriptions: New ibuprofen [IBU] 800 mg tablet 800 mg PO Q8HP PRN (Reason: Moderate Pain) Qty: 30 0RF promethazine 25 mg tablet 25 mg PO TID PRN (Reason: nausea and vomiting) Qty: 20 0RF No Action buprenorphine-naloxone 8-2 mg tablet, sublingual 2 tab SL DAILY Dulera 200-5 mcg/actuation HFA aerosol inhaler 2 puff inhalation BID 90 Days Qty: 13 2RF ipratropium-albuterol 0.5 mg-3 mg(2.5 mg base)/3 mL solution for nebulization 3 ml inhalation QID PRN (Reason: shortness of breath) Qty: 180 0RF Spiriva Respimat 2.5 mcg/actuation mist 2 inh inhalation DAILY 90 Days Qty: 4 3RF ketorolac 10 mg tablet 10 mg PO Q6H PRN (Reason: pain) 5 Days Qty: 16 0RF albuterol sulfate 90 mcg/actuation HFA aerosol inhaler 2 puff inhalation Q4-6H PRN (Reason: shortness of breath or wheezing) Qty: 8.5 0RF prednisone [prednisone] 20 mg tablet 20 mg PO BID 5 Days Qty: 10 0RF Referrals Follow up/Referrals: Arik Garcia DO [Primary Care Provider] - See instructions Activity Restrictions/Add. Instructions Additional Instructions/Restrictions: Drink plenty of fluids. Take ibuprofen for pain. I sent in a prescription for Ibuprofen 800 mg. The promethazine (phenergran) will make you drowsy, so don't drive or operate heavy machinery after taking it. Continue the medications that you are already on. Follow up with your regular doctor. GO TO THE ER FOR ANY WORSENING SYMPTOMS If your headache gets worse instead of better, please return to the ER. Clinical Impressions Clinical Impression: COVID-19, Headache Stand Alone Forms Stand Alone Forms: Work/School Release Instructions Patient Instructions: Ketorolac Injection, Dexamethasone Injection, Coronavirus Disease 2019, Preventing the Spread of Coronavirus Discharge Instructions Discharge ED Provider: Mick Gonsales [facility] [place] HPI General Stated complaint: covid + THOMAS Time Seen by Provider: 04/15/23 16:02 History of Present Illness Provider Complaint: He is back to follow up over having covid-19. He was first diagnosed on 04/09. He states that his chest congestion is getting better and he denies any shortness of breath. He states that at this time he is still having headache. Related Data Home Medications Medication Instructions Recorded Confirmed buprenorphine 8 mg-naloxone 2 mg 2 tab sublingual DAILY 04/16/23 04/16/23 sublingual tablet Previous Rx's Medication Instructions Recorded mometasone-formoterol HFA 200 2 puff inhalation BID 90 days #13 10/18/22 mcg-5 mcg/actuation aerosol grams inhaler (Dulera) ipratropium 0.5 mg-albuterol 3 mg 3 ml inhalation QID PRN shortness 10/25/22 (2.5 mg base)/3 mL nebulization of breath #180 mL soln tiotropium bromide 2.5 2 inh inhalation DAILY 90 days #4 10/30/22 mcg/actuation mist for inhalation grams (Spiriva Respimat) prednisone 20 mg tablet 20 mg PO BID 5 days #10 tabs 04/06/23 albuterol sulfate 90 mcg/actuation 2 puff inhalation Q4-6H PRN 04/09/23 aerosol inhaler shortness of breath or wheezing #8.5 grams ibuprofen 800 mg tablet (IBU) 800 mg PO Q8HP PRN Moderate Pain 04/15/23 #30 tabs promethazine 25 mg tablet 25 mg PO TID PRN nausea and 04/15/23 vomiting #20 tabs ketorolac 10 mg tablet 10 mg PO Q6H PRN pain 5 days #16 04/16/23 tabs Allergies Allergy/AdvReac Type Severity Reaction Status Date / Time Sulfa (Sulfonamide Allergy Severe Other Verified 04/16/23 14:12 Antibiotics) amoxicillin [AMOXICILLIN] Allergy Unknown Verified 04/16/23 14:12 azithromycin [AZITHROMYCIN] Allergy Unknown Verified 04/16/23 14:12 diphenhydramine Allergy Unknown Verified 04/16/23 14:12 [From BENADRYL] Penicillins [PENICILLINS] Allergy Unknown Verified 04/16/23 14:12 [facility] Disclaimer: The information contained in this section may have been updated after th
--- NOTE | 2023-04-15 16:06 | XR_ITS ---
PROCEDURE INFORMATION: Exam: XR Chest Exam date and time: 04/15/2023 4:02 PM Age: 47 years old Clinical indication: Other: Covid positive TECHNIQUE: Imaging protocol: Radiologic exam of the chest. Views: 2 views. COMPARISON: CR XR CHEST PORTABLE 11/27/2022 9:00 PM FINDINGS: Lungs: No evidence of acute airspace consolidation. No pulmonary edema. Pleural spaces: No significant pleural effusion. No pneumothorax. Heart/Mediastinum: Cardiomediastinal silouhette is within normal limits. Bones/joints: No evidence of acute osseous abnormality. IMPRESSION: No evidence of pneumonia.
[2023-04-15 16:07] VITALS: BP 164/109; PULSE 83; RESP 16; TEMP 36.8; O2SAT 96; BMI 29.8
[2023-04-15 17:12] VITALS: BP 164/109; PULSE 83; RESP 16; TEMP 36.8
== END 2023-04-15 17:16 | disposition home or self-care (01) ==
PROVIDERS: Emergency Provider Nurse Practitioner Family; PCP Internal Medicine
DX: U07.1 COVID-19 (principal); R51.9 Headache, unspecified; F17.210 Nicotine dependence, cigarettes, uncomplicated; J44.9 Chronic obstructive pulmonary disease, unspecified; I10 Essential (primary) hypertension; F41.9 Anxiety disorder, unspecified
CPT/HCPCS: 71046; 96372; 99212; 99214; G0463

== ENCOUNTER → 2023-05-08 16:00 | Outpatient (CLI) | payer OTHER, SELFPAY ==
--- NOTE | 2023-05-08 16:03 | XR_ITS ---
FINAL REPORT CLINICAL HISTORY: Knee Pain, ongoing FINDINGS: AP, lateral and oblique views of the left knee were obtained. There is no prior exam for comparison. There is no acute osseous abnormality of the left knee. The joint space is preserved. The soft tissues are normal. There is no joint effusion. IMPRESSION: No acute osseous abnormality of the left knee. Authenticated and ERN
== END ==
PROVIDERS: PCP Internal Medicine; Visit Provider Internal Medicine
DX: M25.562 Pain in left knee (principal)
CPT/HCPCS: 73562

== ENCOUNTER → 2023-05-30 11:41 | Outpatient (CLI) | payer OTHER, SELFPAY ==
[2023-05-30 16:20] LABS: Motility Quality Weak Progression (Mod-Rapid); PH,Semen 8.5 (7.3-8.3); Semen Viscosity Watery (Normal); Sperm Count 62 mil/mm3 (20-160); Sperm Motility > 5 % (50-90)
[2023-05-30 16:21] LABS: 3Hr Motility Quality Immotile Sperm (Mod-Rapid); 3Hr Sperm Motility 0 % (50-60)
[2023-05-30 16:22] LABS: Sperm Morphology Head Abnormality (Normal)
== END ==
PROVIDERS: PCP Internal Medicine; Visit Provider Internal Medicine
DX: Z31.41 Encounter for fertility testing (principal)
CPT/HCPCS: 89320

== ENCOUNTER 2023-06-06 17:05 | Outpatient (RCR) | payer OTHER, SELFPAY ==
--- NOTE | 2023-06-06 18:08 | HMH.PTOPEV ---
PT Outpatient Evaluation Rehab PT Outpatient Evaluation Start: 06/06/23 17:21 Freq: Status: Active Protocol: Document 06/06/23 17:44 CHANI (Rec: 06/06/23 18:08 CHANI [id number]) E-signed By Jose Jones, PT Outpatient Therapy Subjective History Subjective History Patient is a 47 year old male presenting to outpatient PT with reports of L knee pain of insidious onset starting approx 3 months ago. Most recent imaging negative. Comorbidities include hx of COPD, asthma and cholecystectomy. New diagnosis of cancer in past 12 No months? Chief Complaint Pain,Stiff,Swelling Symptom Type Stabbing,Burning Symptoms Relieved By Rest/Positioning,OTC Meds Symptoms Aggravated By Standing,Physical Activity, Walking Prior Functional Limitations None Current Functional Limitations Lifting,Housework,Standing, Squatting,Recreation Activity, Walking,Stairs Symptom Description Intermittent Level of pain today (0-10) 5 Pain scale - at its best (0-10) 0 Pain scale - at its worst (0-10) 10 Hip/Knee Eval Gait Observation General Gait Pattern Observation Antalgic Gait,Decrease Weight Bear (R) Palpation Tenderness right Knee Palpation Finding Tenderness Knee Palpation Overall Comment M/L joint line, lateral distal hamstring insertion 3/4 MMT Hip Flexion Strength Grade 4 Good Hip Abduction Strength Grade 4- Good- Hip Adduction Strength Grade 4- Good- Hip Extension Strength Grade 4- Good- Hip External Rotation Strength Grade 4- Good- Hip Internal Rotation Strength Grade 4- Good- Knee Extension Strength Grade 3+ Fair+ Knee Flexion Strength Grade 4 Good ROM Hip ROM Reason Not Measured Within Functional Limits Knee Extension Active Range of Motion ( -3 degrees) Knee Flexion Active Range of Motion ( 131 degrees) Special Tests Knee Anterior Adam Test Negative Right Knee Pivot Shift Test Negative Right Knee Valgus Stress Test Negative Right Knee Varus Stress Test Negative Right Knee Frederic Test Negative Right Lower Extremity Functional Index Activities Today, do you or would you have any difficulty at all with: a.Any of your usual work, housework or No difficulty school activities b. Your usual hobbies, recreational or A little bit of difficulty sporting activities
== END 2023-06-06 17:10 | disposition home or self-care (01) ==
LOC: PT 17:05
PROVIDERS: PCP Internal Medicine; Visit Provider Internal Medicine
DX: M25.562 Pain in left knee (principal)
CPT/HCPCS: 97163

== ENCOUNTER → 2023-06-27 13:04 | Outpatient (CLI) | payer OTHER, SELFPAY | PROVIDERS: PCP Internal Medicine; Visit Provider Internal Medicine | DX: Z00.00 Encounter for general adult medical examination without abnormal findings (principal); L98.9 Disorder of the skin and subcutaneous tissue, unspecified; L30.1 Dyshidrosis [pompholyx]; R25.2 Cramp and spasm; Z79.899 Other long term (current) drug therapy | CPT/HCPCS: 80053; 83735; 85025; 85651; 86038 ==

== ENCOUNTER 2023-06-30 12:39 | Emergency (ER) | payer OTHER, SELFPAY ==
[2023-06-30 12:50] VITALS: PULSE 84; RESP 18; TEMP 36.7; O2SAT 96; BMI 30.5
--- NOTE | 2023-06-30 13:29 | EXP.UTC ---
Discharge Plan Disposition Patient Disposition: Home, Self-Care Condition: Good Prescriptions Prescriptions: New cyclobenzaprine 10 mg Tablet 10 mg PO BID PRN (Reason: Muscle Spasm) Qty: 20 0RF methylprednisolone 4 mg Tablets,Dose Pack 4 mg PO DIRECTED Qty: 21 0RF No Action buprenorphine-naloxone 8-2 mg tablet, sublingual 2 tab SL DAILY Dulera 200-5 mcg/actuation HFA aerosol inhaler 2 puff inhalation BID 90 Days Qty: 13 2RF ipratropium-albuterol 0.5 mg-3 mg(2.5 mg base)/3 mL solution for nebulization 3 ml inhalation QID PRN (Reason: shortness of breath) Qty: 180 0RF Spiriva Respimat 2.5 mcg/actuation mist 2 inh inhalation DAILY 90 Days Qty: 4 3RF ketorolac 10 mg tablet 10 mg PO Q6H PRN (Reason: pain) 5 Days Qty: 16 0RF cyclobenzaprine 7.5 mg tablet 7.5 mg PO TID PRN (Reason: muscle spasm) Qty: 20 0RF clotrimazole 1 % cream 1 applic topical BID 28 Days Qty: 30 0RF albuterol sulfate 90 mcg/actuation HFA aerosol inhaler 2 puff inhalation Q4-6H PRN (Reason: shortness of breath or wheezing) Qty: 8.5 0RF ibuprofen [IBU] 800 mg tablet 800 mg PO Q8HP PRN (Reason: Moderate Pain) Qty: 30 0RF Referrals Follow up/Referrals: Arik Garcia DO [Primary Care Provider] - See instructions Activity Restrictions/Add. Instructions Additional Instructions/Restrictions: Go home and rest. No heavy lifting. No twisting. Take the oral medications as directed. The muscle relaxer (cyclobenzaprine--Flexeril) will make you drowsy, so don't drive or operate heavy machinery after taking it. Don't start the oral steroids (medrol dose pack) until tomorrow, since you had the shots in here today. Follow up with your regular doctor. GO TO THE ER FOR ANY WORSENING SYMPTOMS OR CONCERN, ESPECIALLY BOWEL OR BLADDER ISSUES, SADDLE AREA NUMBNESS, FEVER, ETC Clinical Impressions Clinical Impression: Low back pain with sciatica, Neck pain Instructions Patient Instructions: DI for Low Back Pain, Ketorolac Injection, Dexamethasone Injection Discharge ED Provider: Mick Gonsales [facility] [place] HPI General Stated complaint: left leg pain Mode of Arrival: Ambulatory Source of Information: Patient Limitations: No Limitations Time Seen by Provider: 06/30/23 13:29 Description of Symptoms (Recalled from Triage Doc. by RN): Pt stated that saturday he started with left upper leg pain, left calf pain, neck, and lower back pain. HEENT Symptoms (Recalled from RN notes): No Resp Symptoms (Recalled from RN notes): No Skin Symptoms (Recalled from RN notes): No MS Symptoms (Recalled from RN notes): Yes Functional Status (Recalled from RN notes): n/a History of Present Illness Provider Complaint: He states that for the past 2 days he has had low back pain that radiates down his right leg. He is also having neck pain. He denies that the neck pain is related to his low back pain. He has a history of chronic issues with both neck and low back pain. He denies any bowel or bladder issues. Related Data Home Medications Medication Instructions Recorded Confirmed buprenorphine 8 mg-naloxone 2 mg 2 tab sublingual DAILY 04/16/23 06/30/23 sublingual tablet Previous Rx's Medication Instructions Recorded mometasone-formoterol HFA 200 2 puff inhalation BID 90 days #13 10/18/22 mcg-5 mcg/actuation aerosol grams inhaler (Dulera) ipratropium 0.5 mg-albuterol 3 mg 3 ml inhalation QID PRN shortness 10/25/22 (2.5 mg base)/3 mL nebulization of breath #180 mL soln tiotropium bromide 2.5 2 inh inhalation DAILY 90 days #4 10/30/22 mcg/actuation mist for inhalation grams (Spiriva Respimat) albuterol sulfate 90 mcg/actuation 2 puff inhalation Q4-6H PRN 04/09/23 aerosol inhaler shortness of breath or wheezing #8.5 grams ibuprofen 800 mg tablet (IBU) 800 mg PO Q8HP PRN Moderate Pain 04/15/23 #30 tabs ketorolac 10 mg tablet 10 mg PO Q6H PRN pain 5 days #16 04/16/23 tabs cyclobenzaprine 7.5 mg tabl
[2023-06-30 13:36] VITALS: BP 0/0; PULSE 84; RESP 18; TEMP 36.7; O2SAT 96
== END 2023-06-30 13:36 | disposition home or self-care (01) ==
PROVIDERS: Emergency Provider Nurse Practitioner Family; PCP Internal Medicine
DX: M54.41 Lumbago with sciatica, right side (principal); M54.2 Cervicalgia; F17.210 Nicotine dependence, cigarettes, uncomplicated; J44.9 Chronic obstructive pulmonary disease, unspecified; I10 Essential (primary) hypertension
CPT/HCPCS: 96372; 99212; 99214; G0463

== ENCOUNTER 2024-09-16 14:33 | Outpatient (CLI) | payer BC, SELFPAY ==
[2024-09-16 14:22] LABS: Coronavirus 19, PCR Not Detected (NotDetected); Influenza A, PCR Not Detected (NotDetected); Influenza B, PCR Not Detected (NotDetected); Respiratory Syncytial Virus Not Detected (NotDetected)
[2024-09-16 20:49] LABS: Human Rhinovirus Detected (NotDetected)
== END 2024-09-16 23:59 | disposition home or self-care (01) ==
LOC: LAB.DROPOF 14:33
PROVIDERS: PCP Nurse Practitioner Family; Visit Provider Nurse Practitioner Family
DX: R06.02 Shortness of breath (principal)
CPT/HCPCS: 87631

== ENCOUNTER 2025-08-07 13:27 | Outpatient (CLI) | payer BC, SELFPAY ==
--- OUTSIDE RECORDS SUMMARY | 2025-08-07 13:34 | XMS_ITS | Clinical Summary ---
Author Organization [facility] Address [address] [place] [id number] Care Team Providers Care Car Pick Up Driver Name Role Phone Arik Garcia Primary Care Provider + Allergies Active Allergy Reactions Criticality Noted Date Comments Penicillins Other (See Comments) 07/17/2024 unknown Medications naproxen (EC NAPROSYN) 500 MG EC tablet Take 1 tablet by mouth 2 (Two) Times a Day With Meals. 30 tablet 07/17/2024 Active lidocaine (LIDODERM) 5 % Place 1 patch on the skin as directed by provider Daily. Remove & Discard patch within 12 hours or as directed by MD 15 each 07/17/2024 Active Social History Tobacco Use Types Packs/Day Years Used Date Smoking Tobacco: Never Assessed Abuse Screen Answer Date Recorded Feels Unsafe at Home or Work/School no 07/17/2024 Feels Threatened by Someone no 01/2024 Does Anyone Try to Keep You From Having Contact with Others or Doing Things Outside Your Home? no 07/17/2024 Physical Signs of Abuse Present no 07/17/2024 Sex and Gender Information Value Date Recorded Sex Assigned at Not on file Legal Sex Male 10:48 AM EST Gender Identity Not on file Sexual Orientation Not on file Last Filed Vital Signs Vital Sign Reading Time Taken Comments Blood Pressure 114/77 07/17/2024 1:02 PM EST Pulse 64 07/17/2024 1:02 PM EST Temperature 36.7 C (98.1 F) 07/17/2024 10:48 AM EST Respiratory Rate 15 07/17/2024 11:19 AM EST Oxygen Saturation 92% 07/17/2024 1:02 PM EST Inhaled Oxygen Concentration - - Weight 95.3 kg (210 lb) 07/17/2024 10:48 AM EST Height 182.9 cm (6') 07/17/2024 10:48 AM EST Body Mass Index 28.48 07/17/2024 10:48 AM EST Plan of Treatment Health Maintenance Due Date Last Done Comments ANNUAL PHYSICAL 1974 HEPATITIS C SCREENING 1974 TDAP/TD VACCINES (1 - Tdap) 1993 COLOGUARD 11/15/2019 COLON CANCER SCREENING 5 YEAR SIGMOIDOSCOPY 11/15/2019 COLONOSCOPY 11/15/2019 COLORECTAL CANCER SCREENING 11/15/2019 CT COLONOGRAPHY 11/15/2019 FECAL OCCULT BLOOD TEST 11/15/2019 FIT Testing (1 year) 11/15/2019 Pneumococcal Vaccine 50+ (1 of 1 - PCV) 2024 ZOSTER VACCINE (1 of 2) 2024 INFLUENZA VACCINE 03/12/2025 Care Teams Car Pick Up Driver Relationship Specialty Start Date End Date Arik Garcia DO [address] [place] [id number] PCP - General Internal Medicine 07/17/24
--- OUTSIDE RECORDS SUMMARY | 2025-08-07 13:34 | XMS_ITS | Clinical Summary ---
Author Organization [facility] Address [address] [place] [id number] Phone [email or web address] Team Providers Care Veterinary Dentist Name Role Phone Unavailable Primary Care Provider Unavailabl e Allergies Active Allergy Reactions Criticality Noted Date Comments Diphenhydramine 03/19/2019 Penicillins 03/19/2019 Medications UNKNOWN TO PATIENTIndications :Takes three inhalers for COPD/ Asthma unsure of names Active Active Problems No known active problems Social History Tobacco Use Types Packs/Day Years Used Date Smoking Tobacco: Every Day Cigarettes Smokeless Tobacco: Never Sex and Gender Information Value Date Recorded Sex Assigned at Not on file Legal Sex Male 8:43 AM CDT Gender Identity Not on file Sexual Orientation Not on file Last Filed Vital Signs Vital Sign Reading Time Taken Comments Blood Pressure 152/98 03/19/2019 10:07 AM EDT Pulse 75 03/19/2019 10:07 AM EDT Temperature 36.9 C (98.4 F) 01/19/2020 6:45 AM EDT Respiratory Rate - - Oxygen Saturation - - Inhaled Oxygen Concentration - - Weight - - Height - - Body Mass Index - - Plan of Treatment Health Maintenance Due Date Last Done Comments CT Colonography 1974 Colonoscopy 1974 Colorectal Cancer Screening Combo 1974 DNA Cologuard 1974 Dental Cleaning/Exam 1974 FIT or FOBT Test 1974 Sigmoidoscopy 1974 Hepatitis B Immunization (1 of 3 - 19+ 3-dose series) 1993 Tetanus Diphtheria and Pertu ssis Immunization (1 - Tdap) 1993 Pneumococcal: 50+ Years (1 o f 1 - PCV) 2024 Zoster Immunization (1 of 2) 2024 Covid-19 Immunization (1 - 2 025-26 season) 2025 Influenza Immunization (#1) 2025 HIB Immunization Aged Out No longer e ligible based on patient's age to complete this topic HPV Immunization Aged Out No longer e ligible based on patient's age to complete this topic Hepatitis A Immunization Aged Out No longer eligible based on patient's age to complete this topic Polio Immunization Aged Out No longer eligible based on patient's age to complete this topic
--- OUTSIDE RECORDS SUMMARY | 2025-08-07 13:34 | XMS_ITS | Clinical Summary ---
Author Organization [facility] Address [address] [place] [address] Care Team Providers Care Dry Mop Maker Name Role Phone Pcp, No Primary Care Provider [phone] Source Comments This information has been disclosed to you from confidential records protectedfrom disclosure by state law. You shall make no further disclosure of thisinformation without the specific, written, and informed release of theindividual to whom it pertains, or as otherwise permitted by law. A generalauthorization for the release of medical or other information is not sufficientfor the purposes of therelease of HIV test results or diagnoses. [id number] Social History Tobacco Use Types Packs/Day Years Used Date Smoking Tobacco: Never Assessed Sex and Gender Information Value Date Recorded Sex Assigned at Not on file Legal Sex Male 3:01 PM EST Gender Identity Not on file Sexual Orientation Not on file Plan of Treatment [place] [id number] [facility] [facility] Care Teams Dry Mop Maker Relationship Specialty Start Date End Date Pcp, No No Address PCP - General 07/30/23
--- NOTE | 2025-08-07 13:36 | XR_ITS ---
PROCEDURE INFORMATION: Exam: XR Right Hand Exam date and time: 08/07/2025 1:27 PM Age: 49 years old Clinical indication: Pain; Hand; Right; Additional info: R thumb pain x2 months TECHNIQUE: Imaging protocol: Radiologic exam of the right hand. Views: 3 or more views. COMPARISON: No relevant prior studies available. FINDINGS: Bones/joints: Severe narrowing of the 1st carpometacarpal joint, with subchondral sclerosis and formation of large osteophytes. Mild narrowing of the 1st interphalangeal joint, with osteophyte formation. Soft tissues: Normal. IMPRESSION: 1. Severe osteoarthritis of the 1st carpometacarpal joint. 2. 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
--- NOTE | 2025-08-07 13:36 | XR_ITS ---
PROCEDURE INFORMATION: Exam: XR Right Finger(s) Exam date and time: 08/07/2025 1:29 PM Age: 49 years old Clinical indication: Pain; Finger(s); Right; Additional info: R thumb pain x2 months TECHNIQUE: Imaging protocol: Radiologic exam of the right fingers. Views: Minimum 2 views. COMPARISON: No relevant prior studies available. FINDINGS: Bones/joints: Severe narrowing of the 1st carpometacarpal joint, with subchondral sclerosis and formation of large osteophytes. Mild narrowing of the 1st interphalangeal joint, with osteophyte formation. Soft tissues: Normal. IMPRESSION: 1. Severe osteoarthritis of the 1st carpometacarpal joint. 2. 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
== END 2025-08-07 23:59 | disposition home or self-care (01) ==
LOC: RAD 13:32
PROVIDERS: PCP Internal Medicine; Visit Provider Student in an Organized Health Care Education/Training Program
DX: M18.9 Osteoarthritis of first carpometacarpal joint, unspecified (principal); M19.041 Primary osteoarthritis, right hand
CPT/HCPCS: 73130; 73140